=== PATIENT | female | born 1960 | race African-American/Black ===

== ENCOUNTER → 2017-05-26 | Outpatient (CLI) | payer MEDICARE, OTHER ==
[2015-11-30 20:55] VITALS: BP 101/56
[~2017-05-26] MED LIST: DIAZ10TA PO; INSU200I SQ; LACT10SO PO; NALO0.4A3 IJ; OXYC80TA16 PO; POLY119P19 PO; [UNRECOGNIZED DRUG - CODE] MC
--- NOTE | 2017-05-26 15:58 | RAD ---
Right second toe, 05/26/2017: History: Pain and swelling No fracture or destructive bony lesion is seen. The soft tissues are unremarkable. IMPRESSION: No acute abnormality is detected.
== END | disposition home or self-care (01) ==
LOC: PMG 15:02
PROVIDERS: ATTEND Physician Assistant
DX: M79.674 Pain in right toe(s) (principal)
CPT/HCPCS: 73660

== ENCOUNTER 2017-07-15 17:27 | Inpatient (IN) | payer MEDICARE, OTHER ==
[~2017-07-15] VITALS: Ht 162.6 cm; Wt 172.0 kg
[2017-07-15] MEDS ORDERED: IPRATRPIUM/ALBUTEROL 0.5/2.5MG 3 ML NEBU. NEB ONE ×3 (18:45)
[2017-07-15] MEDS ORDERED: methylPREDNISolone SOD SUCC PF 125 MG/2 ML VIAL. IV ONE (18:45)
[2017-07-15] MEDS ORDERED: AZITHROMYCIN 250 MG TABLET. PO ONE (18:45)
[2017-07-15 19:01] LABS: BASO % 1 % (0-3); EOS # 0.1 x10^3/uL (0.0-0.7); EOS % 3 % (0-3); HEMATOCRIT 34.9 % (36.0-47.0); HEMOGLOBIN 11.6 g/dL (12.0-15.5); LYMPH # 0.8 x10^3/uL (1.0-4.8); LYMPH % 22 % (24-48); MEAN CORPUSCULAR HEMOGLOBIN 30 pg (25-35); MEAN CORPUSCULAR HGB CONC 33 g/dL (31-37); MEAN CORPUSCULAR VOLUME 90 fL (79-100); MONO # 0.9 x10^3/uL (0.0-1.1); MONO % 25 % (0-9); NEUT # 1.8 x10^3uL (1.8-7.7); NEUT % 49 % (31-73); PLATELET COUNT 105 x10^3/uL (140-400); RED BLOOD COUNT 3.87 x10^6/uL (3.50-5.40); RED CELL DISTRIBUTION WIDTH 14.2 % (11.5-14.5); WHITE BLOOD COUNT 3.7 x10^3/uL (4.0-11.0)
[2017-07-15 19:12] LABS: ALBUMIN 2.6 g/dL (3.4-5.0); ALBUMIN/GLOBULIN RATIO 0.5 (1.0-1.7); CALCIUM 8.8 mg/dL (8.5-10.1); CREATININE 1.1 mg/dL (0.6-1.0); GFR 62.2; POTASSIUM 5.2 mmol/L (3.5-5.1); TOTAL BILIRUBIN 0.3 mg/dL (0.2-1.0); TOTAL PROTEIN 7.7 g/dL (6.4-8.2)
--- NOTE | 2017-07-15 19:54 | EKG ---
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
[2017-07-15 20:01] LABS: % BASOS 2 % (0-3); % LYMPHS 13 % (24-48); % MONOS 23 % (0-10); % SEGS 54 % (35-66)
[2017-07-15 20:51] LABS: PLT ESTIMATE DECREASED (ADEQUATE)
[2017-07-15 20:54] LABS: TARGET CELLS FEW
[2017-07-15 20:55] LABS: TEAR DROP CELLS FEW
[2017-07-15 20:56] LABS: % ATYL 8 % (0-0)
[2017-07-15] MEDS ORDERED: ACETAMINOPHEN 325 MG TABLET PO PRN (21:00)
[2017-07-15] MEDS ORDERED: MORPHINE SULFATE 4 MG/ML DISP.SYRIN. IV PRN (21:00)
[2017-07-15] MEDS ORDERED: ONDANSETRON PF 4 MG/2 ML VIAL. IV PRN (21:00)
--- NOTE | 2017-07-15 21:04 | PHYS DOC ---
Past History Past Medical History: Anxiety, Asthma, CHF, Constipation, COPD, Diabetes, Heart Disease, Hypothyroid, Sciatica Past Surgical History: Hysterectomy, Other Alcohol Use: None Drug Use: None Adult General Chief Complaint Chief Complaint: SHORTNESS OF BREATH HPI HPI Patient is a 56-year-old morbidly obese female who presents to the ER today secondary to COPD exacerbation type symptoms. Patient has a history of hypertension, diabetes, CHF, COPD. Patient reports she has a history of cirrhosis in the past secondary to alcohol use and Tylenol use. Patient reports she has a history significant for COPD and uses treatments at home. Patient reports over the last several days to week she has been having cough of green- yellow sputum that has been slowly getting better, increased shortness of breath that has been slowly getting worse. Patient reports that she saw her primary care physician was reassured and sent home. Patient reports she was not given any antibiotics or steroids at that time. Patient denies any fevers shakes chills. Patient has any vomiting or diarrhea. Patient has any chest pain. Patient has any abdominal pain. Patient has a lower extremity edema. Review of Systems Review of Systems Review of systems: Constitutional: Denies fever or chills Eyes: Denies change in visual acuity, redness, or eye pain HENT: Denies nasal congestion or sore throat Respiratory: Denies cough or shortness of breath All other systems were reviewed and found to be within normal limits, except as documented in this note. Physical exam: Constitutional: Well developed morbidly obese, well nourished, no acute distress , non-toxic appearance. HENT: Normocephalic, atraumatic, bilateral external ears normal, nose normal. Eyes: PERRLA, EOMI, conjunctiva normal, no discharge. Neck: Normal range of motion, no tenderness, supple, no stridor. Cardiovascular: Heart rate regular rhythm, Lungs & Thorax: Diffuse inspiratory and expiratory wheezing, tachypnea Abdomen: No abdominal distention. Skin: Warm, dry, no erythema, no rash. Back: Normal spinal curvature Extremities: No tenderness, no cyanosis, no clubbing, ROM intact, no edema. Neurologic: Alert and oriented X 3, normal motor function, normal sensory function, no focal deficits noted. Psychologic: Affect normal, judgement normal, mood normal. Patient's ER physical exam was most remarkable: EKG as interpreted by ER physician reveals: Normal sinus rhythm with incomplete right bundle branch block Chest x-ray as interpreted by ER physician reveals: No infiltrates or effusions. No pneumonia Labs reviewed: Within normal limits Assessment and plan: 1. COPD exacerbation: Patient with chest x-ray was unremarkable for any infiltrates or effusions. Patient has a normal WBC count. Patient has no fever. Patient's signs and symptoms are not consistent with pneumonia. Patient's sinus symptoms are consistent with an acute exacerbation of chronic bronchitis. Patient will be given by mouth Zithromax here in the ED given her cough and bronchitis type symptoms. Patient was given IV Solu-Medrol and multiple DuoNeb' s. After reevaluation the patient is still not feeling significantly improved and feels like she does not feel comfortable going home. Patient be admitted to the hospital for further management of her COPD. Patient be given oxygen at home. Patient reports that she uses CPAP at home to go to sleep. Current Medications Current Medications Current Medications Medications (Trade) Dose Ordered Sig/Julia Start Time Stop Time Status Last Admin Dose Admin Albuterol/ Ipratropium (Duoneb) 3 ml 1X ONCE 07/15/17 18:45 07/15/17 18:45 DC Azithromycin (Zithromax) 500 mg 1X ONCE 07/15/17 18:45 07/15/17 18:46 DC 07/15/17 18:55 500 MG Methylprednisolone Sodium Succinate (SOLU-Medrol 125MG VIAL) 125 mg 1X ONCE 07/15/17 18:45 07/15/17 18:46 DC 07/15/17 18:55 125 MG Allergies Allergies Allergies Coded Allergies Type Severity Reaction Last Updated Verified Latex, Natural Rubber Allergy Unknown 11/30/15 Yes Current Patient Data Vital Signs Vital Signs Date Time Temp Pulse Resp B/P (MAP) Pulse Ox O2 Delivery O2 Flow Rate FiO2 07/15/17 20:53 80 22 118/63 (81) 98 Room Air 2.0 07/15/17 17:43 97.9 Lab Results Laboratory Tests Test 07/15/17 18:46 White Blood Count 3.7 x10^3/uL (4.0-11.0) L Red Blood Count 3.87 x10^6/uL (3.50-5.40) Hemoglobin 11.6 g/dL (12.0-15.5) L Hematocrit 34.9 % (36.0-47.0) L Mean Corpuscular Volume 90 fL (79-100) Mean Corpuscular Hemoglobin 30 pg (25-35) Mean Corpuscular Hemoglobin Concent 33 g/dL (31-37) Red Cell Distribution Width 14.2 % (11.5-14.5) Platelet Count 105 x10^3/uL (140-400) L Neutrophils (%) (Auto) 49 % (31-73) Lymphocytes (%) (Auto) 22 % (24-48) L Monocytes (%) (Auto) 25 % (0-9) H Eosinophils (%) (Auto) 3 % (0-3) Basophils (%) (Auto) 1 % (0-3) Neutrophils # (Auto) 1.8 x10^3uL (1.8-7.7) Lymphocytes # (Auto) 0.8 x10^3/uL (1.0-4.8) L Monocytes # (Auto) 0.9 x10^3/uL (0.0-1.1) Eosinophils # (Auto) 0.1 x10^3/uL (0.0-0.7) Basophils # (Auto) 0.0 x10^3/uL (0.0-0.2) Segmented Neutrophils % 54 % (35-66) Lymphocytes % 13 % (24-48) L Atypical Lymphocytes % (Manual) 8 % (0-0) H Monocytes % 23 % (0-10) H Basophils % 2 % (0-3) Platelet Estimate Decreased (ADEQUATE) Basophilic Stippling Present Target Cells Few Tear Drop Cells Few Sodium Level 134 mmol/L (136-145) L Potassium Level 5.2 mmol/L (3.5-5.1) H Chloride Level 99 mmol/L (98-107) Carbon Dioxide Level 33 mmol/L (21-32) H Anion Gap 2 (6-14) L Blood Urea Nitrogen 15 mg/dL (7-20) Creatinine 1.1 mg/dL (0.6-1.0) H Estimated GFR (Cockcroft-Gault) 62.2 BUN/Creatinine Ratio 14 (6-20) Glucose Level 91 mg/dL (70-99) Calcium Level 8.8 mg/dL (8.5-10.1) Total Bilirubin 0.3 mg/dL (0.2-1.0) Aspartate Amino Transferase (AST) 39 U/L (15-37) H Alanine Aminotransferase (ALT) 27 U/L (14-59) Alkaline Phosphatase 152 U/L (46-116) H Troponin I Quantitative < 0.017 ng/mL (0-0.055) Total Protein 7.7 g/dL (6.4-8.2) Albumin 2.6 g/dL (3.4-5.0) L Albumin/Globulin Ratio 0.5 (1.0-1.7) L EKG EKG [] Radiology/Procedures Radiology/Procedures [] Course & Med Decision Making Course & Med Decision Making Pertinent Labs and Imaging studies reviewed. (See chart for details) [] Dragon Disclaimer Dragon Disclaimer This electronic medical record was generated, in whole or in part, using a voice recognition dictation system. Departure Departure: Impression: Primary Impression: COPD exacerbation Disposition: ADMITTED INPATIENT Admitting Physician: Dalia Dowd Condition: IMPROVED Referrals: ESSENCE RILEY (PCP) STACIA MOREAU MD Jul 15, 2017 21:04
[2017-07-15 23:18] VITALS: BP 180/89
[2017-07-16] VITALS: BP 146/76
[2017-07-16] MEDS ORDERED: FURO-69 PO (00:31)
[2017-07-16] MEDS ORDERED: ZINC56CR2 TP (00:31)
[2017-07-16] MEDS ORDERED: NYST15CR TP (00:31)
[2017-07-16] MEDS ORDERED: FURO-68 PO (00:31)
[2017-07-16] MEDS ORDERED: LIRA0.6P2 SQ (00:31)
[2017-07-16] MEDS ORDERED: CARV12.52 PO (00:31)
[2017-07-16] MEDS ORDERED: MUPI22OI2 TP (00:31)
[2017-07-16] MEDS ORDERED: OXYC30TA PO (00:31)
[2017-07-16] MEDS ORDERED: DICL100G18 TP (00:31)
[2017-07-16] MEDS ORDERED: METH-38 PO (00:31)
[2017-07-16] MEDS ORDERED: MODA200T2 PO (00:31)
[2017-07-16] MEDS ORDERED: ALBU8.5H8 INH (00:31)
[2017-07-16] MEDS ORDERED: OXYC60TA7 PO (00:31)
[2017-07-16] MEDS ORDERED: TIOT18CA IH (00:31)
[2017-07-16] MEDS ORDERED: TIZA4TAB PO (00:31)
[2017-07-16] MEDS ORDERED: SPIR25TA3 PO (00:31)
[2017-07-16] MEDS ORDERED: INSU100I13 SQ (00:31)
[2017-07-16] MEDS ORDERED: MELO15TA23 PO (00:31)
[2017-07-16] MEDS ORDERED: HYDR453.3 TP (00:31)
[2017-07-16] MEDS ORDERED: POTA20TA4 PO (00:31)
[2017-07-16] MEDS ORDERED: METR70GE2 TP (00:31)
[2017-07-16] MEDS ORDERED: CALC60CR2 TP (00:31)
[2017-07-16] MEDS ORDERED: GABA600T2 PO (00:31)
[2017-07-16] MEDS ORDERED: LISI10TA2 PO (00:31)
[2017-07-16] MEDS ORDERED: CLOB15OI TP (00:31)
[2017-07-16] MEDS ORDERED: OMEP20TA8 PO (00:31)
[2017-07-16] MEDS ORDERED: ZOLP10TA PO (00:31)
[2017-07-16] MEDS ORDERED: ALBUTEROL SULFATE 8GM INHALER. INH PRN (00:45)
[2017-07-16] MEDS ORDERED: HYDROCORTISONE 2.5% TOPICAL CREAM 30GM TUBE. TP PRN (00:45)
[2017-07-16] MEDS ORDERED: GABAPENTIN 400 MG CAPSULE. PO ONE (01:30)
[2017-07-16] MEDS ORDERED: ZINC OXIDE 20% TOPICAL OINTMENT 28GM TUBE. TP PRN (01:30)
[2017-07-16] MEDS ORDERED: ALBUTEROL SULFATE 2.5 MG/3 ML NEBU. NEB PRN (01:30)
[2017-07-16] MEDS: methylPREDNISolone SOD SUCC PF 40 MG/ML VIAL. IV SCH ×4 (01:34→17:59)
[2017-07-16 03:00] VITALS: BP 138/66
[2017-07-16] MEDS: IPRATRPIUM/ALBUTEROL 0.5/2.5MG 3 ML NEBU. NEB SCH ×4 (05:50→21:25)
[2017-07-16] MEDS: oxyCODONE ER 20 MG TAB.ER.12H PO SCH ×3 (07:18→21:59)
[2017-07-16 07:20] VITALS: BP 148/68
[2017-07-16] MEDS ORDERED: IPRATRPIUM/ALBUTEROL 0.5/2.5MG 3 ML NEBU. NEB SCH (08:00)
--- NOTE | 2017-07-16 08:00 | RAD ---
2 views of the Chest 07/15/2017 8:32 PM Indication: shortness of breath Comparison: Chest radiograph May 11, 2015 Findings: Patient is mildly rotated. There is no focal consolidation or infiltrate identified. There is no effusion or pneumothorax. Degenerative changes of the lumbar spine are noted. Heart size is normal. Chronic appearing left humeral deformity noted. Impression: No evidence of acute cardiopulmonary process.
[2017-07-16] MEDS: FUROSEMIDE 40 MG TABLET PO SCH (08:15)
[2017-07-16] MEDS: MODAFINIL 100 MG TABLET PO SCH (08:16)
[2017-07-16] MEDS: CARVEDILOL 12.5 MG TABLET PO SCH ×2 (08:16→16:58)
[2017-07-16] MEDS: PANTOPRAZOLE 40 MG TABLET. PO SCH (08:17)
[2017-07-16] MEDS: METHOCARBAMOL 750 MG TABLET PO SCH ×2 (08:17→21:12)
[2017-07-16] MEDS: SPIRONOLACTONE 25 MG TABLET PO SCH ×2 (08:17→21:12)
[2017-07-16] MEDS: LISINOPRIL 10 MG TABLET PO SCH (08:17)
[2017-07-16] MEDS: GABAPENTIN 300 MG CAPSULE. PO SCH ×3 (08:17→21:12)
[2017-07-16] MEDS: MELOXICAM 15 MG TABLET. PO SCH (08:17)
[2017-07-16] MEDS: INSULIN ASPART 300 UNITS/3 ML INSULN.PEN SQ SCH ×3 (08:37→16:58)
[2017-07-16] MEDS: DICLOFENAC SODIUM 1% TOPICAL GEL 100GM TUBE. TP SCH ×2 (09:00→21:57)
[2017-07-16] MEDS: NON FORMULARY ITEM (Liraglutide (Victoza 3-Pak) 1.8 MG) SQ SCH (09:00)
[2017-07-16] MEDS ORDERED: NON FORMULARY ITEM (Tiotropium Bromide (Spiriva) 1 CAP) IH SCH (09:00)
[2017-07-16] MEDS: POTASSIUM CHLORIDE 20 MEQ TABLET.ER. PO SCH ×2 (09:00→21:00)
[2017-07-16] MEDS: NYSTATIN 100,000 UNIT/GM TOPICAL CREAM 15GM TUBE. TP SCH ×2 (09:00→21:58)
[2017-07-16 11:18] VITALS: BP 133/65
[2017-07-16 15:37] VITALS: BP 131/51
[2017-07-16 15:40] LABS: INFLUENZA A PATIENT NEGATIVE (NEGATIVE); INFLUENZA B PATIENT NEGATIVE (NEGATIVE)
[2017-07-16] MEDS: AZITHROMYCIN 250 MG TABLET. PO SCH (16:50)
[2017-07-16] MEDS: FUROSEMIDE 20 MG TABLET PO SCH (16:50)
[2017-07-16] MEDS: cefTRIAXone IV Push 1 GM VIAL. IVP SCH (16:51)
[2017-07-16 19:33] VITALS: BP 144/87
[2017-07-16] MEDS: MONTELUKAST 10 MG TABLET. PO SCH (21:12)
[2017-07-16] MEDS: INSULIN DETEMIR 300 UNITS/3 ML INSULN.PEN. SQ SCH (21:22)
[2017-07-17] MEDS: methylPREDNISolone SOD SUCC PF 40 MG/ML VIAL. IV SCH ×4 (00:13→18:00)
[2017-07-17 00:26] VITALS: BP 149/77
[2017-07-17] MEDS: tiZANidine 4 MG TABLET. PO SCH ×2 (02:00→20:36)
--- NOTE | 2017-07-17 02:46 | HP ---
ADMIT DATE: 07/15/2017 HISTORY OF PRESENT ILLNESS: The patient is a 56-year-old -[place] female patient, who came to the Emergency Room complaining of shortness of breath, cough, chest tightness, wheezing and seemed to be yellowish sputum that has been going on for almost 2 weeks, according to her. So, her primary care physician about a week ago was reassured and sent home. At that time, she was not given any antibiotic or steroids; however, the patient denied having any fevers, shaking chills, and does not have any nausea, vomiting or diarrhea. She denied any chest pain, denied any nausea, vomiting, or diarrhea. She was evaluated in the Emergency Room and was admitted with COPD exacerbation and was started on steroids and inhalers. PAST MEDICAL HISTORY: Her past medical history is significant for chronic obstructive pulmonary disease, morbid obesity, obstructive sleep apnea, on CPAP. She has a history of congestive heart failure, most likely due to left ventricular diastolic dysfunction, hypertension, diabetes mellitus, liver cirrhosis, secondary to alcohol and perhaps hepatitis C, hypothyroidism, and chronic osteoarthritis. She has psoriasis and what seemed to be peripheral vascular disease. PAST SURGICAL HISTORY: Past surgical history is significant for bilateral cataract extraction, appendectomy, total abdominal hysterectomy, colonoscopy done yearly as they found she has polyps. She has also back surgery x 2. ALLERGIES: She has no known drug allergies except TO LATEX AND NATURAL RUBBERS. MEDICATIONS: She is currently on following medications: She is on albuterol sulfate 0.5 mg 2 puffs every 6 hours, carvedilol 12.5 mg twice a day, diazepam 10 mg twice a day, diclofenac sodium 100 gram gel apply topically twice a day, furosemide 20 mg daily, gabapentin 600 mg 3 times a day, hydrocortisone cream apply topically twice a day. She is on Lantus insulin 24 units at bedtime and Humalog insulin 24 units before meals. She is on Victoza 1.8 mg subq daily. She is on lisinopril 10 mg once a day, meloxicam 15 mg once a day, methocarbamol 750 mg twice a day, modafinil 200 mg once a day, nystatin 15 grams cream apply topically twice a day, omeprazole 20 mg once a day, oxycodone extended release 60 mg every 8 hours, oxycodone 30 mg tablet, half a tablet every 4 hours. She is on potassium chloride 20 mEq twice a day, spironolactone 25 mg twice a day, Spiriva HandiHaler 1 inhalation once a day, tizanidine 4 mg at bedtime, zinc oxide or Desitin apply topically twice a day. She is on Ambien 10 mg at bedtime. FAMILY HISTORY: She has one brother at the age of 45 because of stomach cancer, another sister in her 30s because of breast cancer. Her another brother and she has one brother who is blind and has dementia at the age of 75. SOCIAL HISTORY: She lives with her family. She has 2 sons and 1 daughter. She quit smoking 23 years ago, quit alcohol 23 years ago. She said that she used to smoke cigarettes and smoked since she was 16 years old. She also used to be a heavy alcohol drinker, quit 23 years ago. She stated that she abused crack and weed and speed when at her younger age. REVIEW OF SYSTEMS: The patient has bilateral cataract extraction. Denied any glaucoma or macular degeneration. Denied any earache, tinnitus or sensorineural deafness. Denied any nosebleeds, stuffy nose or postnasal drip. Denied any sore throat, sore tongue, toothache, hoarseness of voice or difficulty swallowing. Denied any nausea, vomiting, diarrhea or constipation. Denied any hematemesis, melena or hematochezia. Denied any dysuria, frequency or hematuria. Denied any chest pain. She did complain of shortness of breath, cough with yellowish sputum. PHYSICAL EXAMINATION: GENERAL: On arrival to the Emergency Room, the patient was slightly tachypneic and pale, no jaundice, cyanosis, or thyromegaly. No jugular venous distension. No limb edema. VITAL SIGNS: Her heart rate was 18, blood pressure was 135/70, temperature was 98, respiratory rate was 22, and oxygen saturation was 98% on 2 liters of oxygen. HEAD, EYES, EARS, NOSE AND THROAT: Showed normocephalic, atraumatic. NECK: Supple. HEART: Showed normal first and second heart sounds with no gallop, rub or murmur. CHEST: Showed central trachea, equally reduced expansion, reduced air entry, vesicular sounds with bilateral scattered rhonchi. I could not appreciate any crepitation. ABDOMEN: Distended, soft, nontender. NEUROLOGIC: She is awake, alert, responding appropriately. Cranial nerves are intact. EXTREMITIES: She moves extremities without difficulty, although she is mostly bedbound, chair bound. LABORATORY AND DIAGNOSTIC DATA: Her lab work on arrival showed a white cell count of 3700, hemoglobin 11.6, hematocrit 34.9, MCV 90, and platelet count of 105,000. Her serum sodium was 134, potassium 5.2, chloride 99, bicarbonate 33, anion gap of 2, BUN 15, creatinine 1.1, estimated GFR was 60 mL per minute. Her glucose was 91, calcium was 8.8. Total bilirubin and ALT was normal. AST and alkaline phosphatase was slightly elevated. Her total protein was 7.7, albumin was 2.6. She did have a chest x-ray, which showed there is no focal consolidation or infiltrate identified. There is no effusion or pneumothorax. Degenerative changes of the lumbar spine are noted, heart size is normal. Chronic appearing left humeral deformity noted. ASSESSMENT AND PLAN: The patient was admitted with chronic obstructive pulmonary disease exacerbation. She is now on steroids and nebulized albuterol and Atrovent. Continue all her other medications. Other medical problems including hypertension, type 2 diabetes mellitus, liver cirrhosis secondary to hepatitis C and alcoholism, hypothyroidism, morbid obesity, obstructive sleep apnea, on CPAP. She has also history of psoriasis and chronic arthritis. NICOLE LEE MD DR: ANAHI/rafi JOB#: [id number] / [id number]
[2017-07-17] MEDS ORDERED: MUPI30OI TP (03:11)
[2017-07-17] MEDS ORDERED: METR70GE2 TP (03:11)
[2017-07-17] MEDS ORDERED: CLOB15OI TP (03:11)
[2017-07-17] MEDS ORDERED: CALC60CR TP (03:11)
[2017-07-17 05:32] LABS: HEMATOCRIT 35.1 % (36.0-47.0); HEMOGLOBIN 11.7 g/dL (12.0-15.5); RED BLOOD COUNT 3.88 x10^6/uL (3.50-5.40); RED CELL DISTRIBUTION WIDTH 14.1 % (11.5-14.5); WHITE BLOOD COUNT 4.6 x10^3/uL (4.0-11.0)
[2017-07-17 05:33] VITALS: BP 117/64
[2017-07-17] MEDS: IPRATRPIUM/ALBUTEROL 0.5/2.5MG 3 ML NEBU. NEB SCH ×4 (05:38→20:25)
[2017-07-17 05:48] LABS: ALBUMIN 2.4 g/dL (3.4-5.0); ALBUMIN/GLOBULIN RATIO 0.5 (1.0-1.7); CALCIUM 8.8 mg/dL (8.5-10.1); CREATININE 1.1 mg/dL (0.6-1.0); GFR 62.2; POTASSIUM 4.7 mmol/L (3.5-5.1); TOTAL BILIRUBIN 0.3 mg/dL (0.2-1.0); TOTAL PROTEIN 7.5 g/dL (6.4-8.2)
[2017-07-17] MEDS: oxyCODONE ER 20 MG TAB.ER.12H PO SCH ×4 (07:12→22:00)
[2017-07-17] MEDS: GABAPENTIN 300 MG CAPSULE. PO SCH ×3 (08:16→20:37)
[2017-07-17] MEDS: MELOXICAM 15 MG TABLET. PO SCH (08:17)
[2017-07-17] MEDS: MODAFINIL 100 MG TABLET PO SCH (08:17)
[2017-07-17] MEDS: CARVEDILOL 12.5 MG TABLET PO SCH ×2 (08:17→17:02)
[2017-07-17] MEDS: METHOCARBAMOL 750 MG TABLET PO SCH ×2 (08:17→20:37)
[2017-07-17] MEDS: SPIRONOLACTONE 25 MG TABLET PO SCH ×2 (08:18→20:36)
[2017-07-17] MEDS: PANTOPRAZOLE 40 MG TABLET. PO SCH (08:18)
[2017-07-17] MEDS: FUROSEMIDE 40 MG TABLET PO SCH (08:18)
[2017-07-17] MEDS: LISINOPRIL 10 MG TABLET PO SCH (08:18)
[2017-07-17] MEDS: DICLOFENAC SODIUM 1% TOPICAL GEL 100GM TUBE. TP SCH ×2 (08:19→21:00)
[2017-07-17] MEDS: INSULIN ASPART 300 UNITS/3 ML INSULN.PEN SQ SCH ×3 (08:24→17:03)
[2017-07-17] MEDS: POTASSIUM CHLORIDE 20 MEQ TABLET.ER. PO SCH ×2 (08:41→20:37)
[2017-07-17] MEDS: LACTOBACILLUS RHAMNOSUS GG 1 CAPSULE. PO SCH ×2 (08:41→20:36)
[2017-07-17] MEDS: NYSTATIN 100,000 UNIT/GM TOPICAL CREAM 15GM TUBE. TP SCH ×2 (08:41→21:00)
[2017-07-17] MEDS: NON FORMULARY ITEM (Liraglutide (Victoza 3-Pak) 1.8 MG) SQ SCH (08:41)
[2017-07-17 11:07] VITALS: BP 100/60
[2017-07-17] MEDS: oxyCODONE IR 5 MG TABLET PO PRN (13:03)
[2017-07-17 15:15] VITALS: BP 148/68
[2017-07-17] MEDS: cefTRIAXone IV Push 1 GM VIAL. IVP SCH (15:47)
[2017-07-17] MEDS: FUROSEMIDE 20 MG TABLET PO SCH (15:47)
--- NOTE | 2017-07-17 16:59 | PN ---
DATE: 07/17/2017 SUBJECTIVE: The patient is resting slightly propped up in her bed, eating her lunch comfortably. She continued to complain of having difficulty expectorating and also shortness of breath. GENERAL: When I examined her, she looked well and was clearly in no apparent respiratory distress, slightly pale, but not jaundiced, cyanosed from thyromegaly. No jugular venous distension. No limb edema. VITAL SIGNS: Her heart rate was 67, blood pressure was 100/60, temperature was 97.6, respiratory rate was 18, and oxygen saturation was 96% on 2.5 liters of oxygen. HEAD, EYES, EARS, NOSE, AND THROAT: Showed normocephalic, atraumatic. NECK: Supple. HEART: Showed normal first and second heart sounds. No gallop, rub, or murmur. CHEST: Clear to auscultation. No crepitation or rhonchi. ABDOMEN: Distended, soft. NEUROLOGIC: She is awake, alert, responding appropriately. Cranial nerves intact. She moves extremities without difficulty. Her intake was 1000, output was 1175. LABORATORY DATA: As of this morning, her white cell count was 4600, hemoglobin 11.7, hematocrit 35, MCV 91, and platelet count of 91,000. Her chemistry showed a serum sodium of 133, potassium 4.7, chloride 97, bicarbonate 31, anion gap of 4, BUN 21, creatinine 1.1, estimated GFR was 62 mL per minute. Her blood glucose was 153, calcium was 8.8. Total bilirubin, AST, ALT, alkaline phosphatase were normal. Her ammonia was 11. Total protein was 7.5, albumin 2.4. Her prothrombin time was 13.3, INR 1.3. Her influenza A and B were negative. ASSESSMENT: 1. Acute bronchitis. 2. Chronic obstructive pulmonary disease exacerbation. 3. Hypertension. 4. Type 2 diabetes mellitus. 5. Liver cirrhosis secondary to hepatitis C and alcoholism. 6. Hypothyroidism. 7. Morbid obesity, obstructive sleep apnea, on CPAP. 8. Psoriasis and probably chronic psoriatic arthritis. PLAN: To continue with IV antibiotic in the form of Rocephin and Zithromax. Continue with bronchodilator. Continue with steroids. NICOLE LEE MD DR: ANAHI/rafi JOB#: [id number] / [id number]
[2017-07-17] MEDS: AZITHROMYCIN 250 MG TABLET. PO SCH (17:02)
[2017-07-17 18:38] VITALS: BP 154/45
[2017-07-17] MEDS: MONTELUKAST 10 MG TABLET. PO SCH (20:36)
[2017-07-17] MEDS: INSULIN DETEMIR 300 UNITS/3 ML INSULN.PEN. SQ SCH (20:44)
[2017-07-18] MEDS: ZOLPIDEM 5 MG TABLET. PO PRN (01:02)
[2017-07-18] MEDS: methylPREDNISolone SOD SUCC PF 40 MG/ML VIAL. IV SCH ×4 (01:02→20:24)
[2017-07-18] MEDS: oxyCODONE IR 5 MG TABLET PO PRN ×2 (01:03→22:48)
[2017-07-18] MEDS: IPRATRPIUM/ALBUTEROL 0.5/2.5MG 3 ML NEBU. NEB SCH ×4 (05:16→21:01)
[2017-07-18] MEDS: oxyCODONE ER 20 MG TAB.ER.12H PO SCH ×3 (05:33→22:00)
[2017-07-18 06:51] VITALS: BP 178/80
[2017-07-18] MEDS: PANTOPRAZOLE 40 MG TABLET. PO SCH (07:52)
[2017-07-18] MEDS: CARVEDILOL 12.5 MG TABLET PO SCH ×2 (08:28→17:15)
[2017-07-18] MEDS: INSULIN ASPART 300 UNITS/3 ML INSULN.PEN SQ SCH ×3 (08:31→17:24)
[2017-07-18] MEDS: FUROSEMIDE 40 MG TABLET PO SCH (08:55)
[2017-07-18] MEDS: SPIRONOLACTONE 25 MG TABLET PO SCH ×2 (08:56→20:26)
[2017-07-18] MEDS: LACTOBACILLUS RHAMNOSUS GG 1 CAPSULE. PO SCH ×2 (08:56→20:25)
[2017-07-18] MEDS: GABAPENTIN 300 MG CAPSULE. PO SCH ×3 (08:56→20:25)
[2017-07-18] MEDS: POTASSIUM CHLORIDE 20 MEQ TABLET.ER. PO SCH ×2 (08:56→20:24)
[2017-07-18] MEDS: MELOXICAM 15 MG TABLET. PO SCH (08:56)
[2017-07-18] MEDS: LISINOPRIL 10 MG TABLET PO SCH (08:57)
[2017-07-18] MEDS: MODAFINIL 100 MG TABLET PO SCH (08:57)
[2017-07-18] MEDS: DICLOFENAC SODIUM 1% TOPICAL GEL 100GM TUBE. TP SCH ×2 (08:58→20:45)
[2017-07-18] MEDS: METHOCARBAMOL 750 MG TABLET PO SCH ×2 (08:58→20:25)
[2017-07-18] MEDS: NYSTATIN 100,000 UNIT/GM TOPICAL CREAM 15GM TUBE. TP SCH ×2 (08:58→20:45)
[2017-07-18] MEDS: NON FORMULARY ITEM (Liraglutide (Victoza 3-Pak) 1.8 MG) SQ SCH (09:00)
[2017-07-18 11:53] VITALS: BP 133/71
[2017-07-18 15:41] VITALS: BP 156/70
[2017-07-18] MEDS: FUROSEMIDE 20 MG TABLET PO SCH (16:14)
[2017-07-18] MEDS: cefTRIAXone IV Push 1 GM VIAL. IVP SCH (16:15)
[2017-07-18] MEDS: AZITHROMYCIN 250 MG TABLET. PO SCH (17:15)
[2017-07-18 19:29] VITALS: BP 135/70
[2017-07-18] MEDS: ENOXAPARIN ** NOTE DOSE ** SYRINGE SQ SCH (20:24)
[2017-07-18] MEDS: MONTELUKAST 10 MG TABLET. PO SCH (20:26)
[2017-07-18] MEDS: [UNRECOGNIZED DRUG - OTHER] INH SCH (21:00)
[2017-07-18] MEDS: INSULIN DETEMIR 300 UNITS/3 ML INSULN.PEN. SQ SCH (22:17)
[2017-07-18 23:30] VITALS: BP 142/71
[2017-07-19] MEDS: ZOLPIDEM 5 MG TABLET. PO PRN (01:47)
[2017-07-19] MEDS: tiZANidine 4 MG TABLET. PO SCH ×2 (01:47→21:21)
[2017-07-19] MEDS: methylPREDNISolone SOD SUCC PF 40 MG/ML VIAL. IV SCH ×2 (04:10→11:47)
[2017-07-19] MEDS: IPRATRPIUM/ALBUTEROL 0.5/2.5MG 3 ML NEBU. NEB SCH ×4 (04:51→20:08)
[2017-07-19] MEDS: oxyCODONE ER 20 MG TAB.ER.12H PO SCH ×3 (06:06→21:23)
[2017-07-19 06:41] VITALS: BP 138/72
[2017-07-19 06:44] LABS: HEMATOCRIT 35.1 % (36.0-47.0); HEMOGLOBIN 11.6 g/dL (12.0-15.5); RED BLOOD COUNT 3.88 x10^6/uL (3.50-5.40); RED CELL DISTRIBUTION WIDTH 13.9 % (11.5-14.5); WHITE BLOOD COUNT 4.5 x10^3/uL (4.0-11.0)
[2017-07-19 06:52] LABS: ALBUMIN 2.2 g/dL (3.4-5.0); ALBUMIN/GLOBULIN RATIO 0.5 (1.0-1.7); CALCIUM 8.5 mg/dL (8.5-10.1); CREATININE 1.1 mg/dL (0.6-1.0); GFR 62.2; POTASSIUM 5.6 mmol/L (3.5-5.1); TOTAL BILIRUBIN 0.2 mg/dL (0.2-1.0); TOTAL PROTEIN 6.6 g/dL (6.4-8.2)
[2017-07-19] MEDS: LACTOBACILLUS RHAMNOSUS GG 1 CAPSULE. PO SCH ×2 (08:29→21:20)
[2017-07-19] MEDS: FUROSEMIDE 40 MG TABLET PO SCH (08:29)
[2017-07-19] MEDS: GABAPENTIN 300 MG CAPSULE. PO SCH ×3 (08:29→16:40)
[2017-07-19] MEDS: MODAFINIL 100 MG TABLET PO SCH (08:29)
[2017-07-19] MEDS: METHOCARBAMOL 750 MG TABLET PO SCH ×2 (08:30→21:20)
[2017-07-19] MEDS: CARVEDILOL 12.5 MG TABLET PO SCH ×2 (08:30→16:41)
[2017-07-19] MEDS: PANTOPRAZOLE 40 MG TABLET. PO SCH (08:30)
[2017-07-19] MEDS: LISINOPRIL 10 MG TABLET PO SCH (08:30)
[2017-07-19] MEDS: [UNRECOGNIZED DRUG - OTHER] INH SCH ×2 (08:30→21:20)
[2017-07-19] MEDS: MELOXICAM 15 MG TABLET. PO SCH (08:30)
[2017-07-19] MEDS: ENOXAPARIN ** NOTE DOSE ** SYRINGE SQ SCH ×2 (08:33→21:20)
[2017-07-19] MEDS: INSULIN ASPART 300 UNITS/3 ML INSULN.PEN SQ SCH ×3 (08:43→16:30)
[2017-07-19] MEDS: NYSTATIN 100,000 UNIT/GM TOPICAL CREAM 15GM TUBE. TP SCH ×2 (08:44→21:00)
[2017-07-19] MEDS: SPIRONOLACTONE 25 MG TABLET PO SCH ×2 (08:44→21:20)
[2017-07-19] MEDS: NON FORMULARY ITEM (Liraglutide (Victoza 3-Pak) 1.8 MG) SQ SCH (08:44)
[2017-07-19] MEDS: DICLOFENAC SODIUM 1% TOPICAL GEL 100GM TUBE. TP SCH ×2 (08:44→21:00)
[2017-07-19] MEDS: POTASSIUM CHLORIDE 20 MEQ TABLET.ER. PO SCH (08:44)
[2017-07-19 10:48] VITALS: BP 111/59
[2017-07-19] MEDS: oxyCODONE IR 5 MG TABLET PO PRN (13:59)
[2017-07-19 14:11] LABS: CALCIUM 8.5 mg/dL (8.5-10.1); CREATININE 1.1 mg/dL (0.6-1.0); GFR 62.2; POTASSIUM 4.9 mmol/L (3.5-5.1)
[2017-07-19 15:50] VITALS: BP 141/68
[2017-07-19] MEDS: AZITHROMYCIN 250 MG TABLET. PO SCH (16:40)
[2017-07-19] MEDS: cefTRIAXone IV Push 1 GM VIAL. IVP SCH (16:41)
[2017-07-19] MEDS: FUROSEMIDE 20 MG TABLET PO SCH (16:41)
[2017-07-19] MEDS ORDERED: ENOXAPARIN 40 MG/0.4 ML DISP.SYRIN. SQ SCH (18:00)
[2017-07-19 19:58] VITALS: BP 109/65
[2017-07-19] MEDS: MONTELUKAST 10 MG TABLET. PO SCH (21:20)
[2017-07-19] MEDS: INSULIN DETEMIR 300 UNITS/3 ML INSULN.PEN. SQ SCH (21:43)
[2017-07-19 22:34] VITALS: BP 118/72
--- NOTE | 2017-07-19 23:14 | PN ---
DATE: 07/19/2017 SUBJECTIVE: The patient is resting slightly propped up in bed, continued to complain of cough, which is mostly dry hacking. Denied any chills, rigors or fever. PHYSICAL EXAMINATION: GENERAL: When I examined her this afternoon, she looked well and was not really in any respiratory distress, slightly pale. No jaundice, cyanosis, or thyromegaly. No jugular venous distension. No limb edema. VITAL SIGNS: Her heart rate was 65, blood pressure 141/68, temperature was 97.5, respiratory rate 22 and oxygen saturation was 99% on 2.5 liters by nasal cannula. HEAD, EYES, EARS, NOSE AND THROAT: Showed normocephalic, atraumatic. NECK: Supple. HEART: Showed normal first and second heart sounds with no gallop, rub or murmur. CHEST: Showed central trachea, equally reduced expansion, reduced air entry, vesicular breath sounds. I really could not appreciate any crepitation or rhonchi. ABDOMEN: Distended, soft, nontender. No guarding or rigidity. No organomegaly. Hernial orifice intact. Bowel sounds normal. NEUROLOGIC: She is awake, alert, responding appropriately. Cranial nerves intact. She moves extremities without difficulty, although so far she has been mostly bed bound. Her intake over the last 24 hours was 3030, output was 2400. LABORATORY DATA: As of this morning showed a white cell count 4500, hemoglobin 11.6, hematocrit 35, MCV 90 and platelet count of 93,000. Her chemistry showed a serum sodium 131, potassium 4.9, chloride 97, bicarbonate 32, anion gap of 2, BUN 27, creatinine 1.1, estimated GFR was 62 mL per minute. Her glucose was 193, calcium was 8.5. Her prothrombin time was 13.3, INR 1.3. Her influenza A and B were negative. Her nasal screen for MRSA PCR was positive. ASSESSMENT: 1. Acute bronchitis. 2. Chronic obstructive pulmonary disease exacerbation. 3. Hypertension. 4. Type 2 diabetes mellitus. 5. Liver cirrhosis secondary to hepatitis C and alcoholism. 6. Hypothyroidism. 7. Morbid obesity and obstructive sleep apnea on CPAP. 8. Psoriasis, probably chronic psoriatic arthritis. PLAN: To continue with IV antibiotic. Continue with the steroids. Continue with DVT prophylaxis. I will cut down his steroids to 40 mg twice a day. Continue with all other medication. I will discontinue her lisinopril in case this is the cause of her chronic cough and decide on further management accordingly. NICOLE LEE MD DR: ANAHI/rafi JOB#: [id number] / [id number]
[2017-07-20] MEDS ORDERED: methylPREDNISolone SOD SUCC PF 40 MG/ML VIAL. IV SCH
[2017-07-20] MEDS: IPRATRPIUM/ALBUTEROL 0.5/2.5MG 3 ML NEBU. NEB SCH ×4 (05:13→20:37)
[2017-07-20 05:14] VITALS: BP 143/81
[2017-07-20 06:16] LABS: CALCIUM 8.4 mg/dL (8.5-10.1); CREATININE 1.1 mg/dL (0.6-1.0); GFR 62.2; POTASSIUM 5.7 mmol/L (3.5-5.1)
--- NOTE | 2017-07-20 07:52 | PDOC ---
PROGRESS NOTES Diagnosis Problem Problems Medical Problems: (1) COPD exacerbation Status: Acute Assessment 1. Acute on chronic bronchitis: Cont abx (de-escalate, d/c Rocephin, no sign of pneumonia). Cont home O2, pt is at baseline. Cont nebs. 2. Acute/chronic respiratory failure: Pt is now down to her home O2 level. Continue O2 by NC. 3. Hypertension: BP stable, no change in tx. 4. Type 2 diabetes mellitus, uncontrolled: BG's very elevated, likely due to steroids. Will add SSI to home insulin dosing. 5. Liver cirrhosis secondary to hepatitis C and alcoholism: Labs stable. 6. Hypothyroidism: Stable. 7. Morbid obesity and obstructive sleep apnea on CPAP: Continue CPAP. 8. Psoriasis, probably chronic psoriatic arthritis: Pt will need f/u as outpatient. 9. Hyperkalemia: D/c spironolactone (KCL and ACEI were d/c'd yesterday). Give insulin to lower sugars. Recheck K+ later today. 10. DVT proph: Lovenox. Problems: Plan of Care: see other orders Subjective Pt states she is still a bit under the weather. Denies fever, chest pain, vomiting, diarrhea, abd pain, dizziness, or muscle pain. States she is having a hard time getting the "drainage to break up." Says she feels like she needs to break it up to be able to get the cough to improve. Denies bloody sputum. Objective Vital Signs Date Time Temp Pulse Resp B/P (MAP) Pulse Ox O2 Delivery O2 Flow Rate FiO2 07/20/17 05:15 98 Nasal Cannula 2.5 07/20/17 05:14 98.3 72 24 143/81 (101) Intake and Output 07/20/17 07:00 Intake Total 2250 ml Balance 2250 ml Intake Oral 2250 ml # Voids 2 # Bowel Movements 1 Abdomen: Soft, No tenderness, No masses, Other (Morbidly obese) Heart: Regular rate, Normal S1, Normal S2, No murmurs Extremities: Other (Thickened edema BLE, no calf TTP) General: Alert, Cooperative, No acute distress HEENT: PERRLA, EOMI, Mucous membr. moist/pink Lungs: Other (Diffusely diminished breath sounds bilaterally, no resp distress , dry barky cough) Neck: No JVD, No LAD Neuro: Strength at 5/5 X4 ext, Normal tone, Cranial nerves 3-12 NL Psych/Mental Status: Mental status NL, Mood NL Skin: No breakdown Review of Relevant I have reviewed the following items gabriella (where applicable) has been applied. Labs Laboratory Tests Test 07/18/17 11:43 07/18/17 17:02 07/18/17 22:10 07/19/17 06:14 Glucose (Fingerstick) 221 mg/dL (70-99) 273 mg/dL (70-99) 244 mg/dL (70-99) White Blood Count 4.5 x10^3/uL (4.0-11.0) Red Blood Count 3.88 x10^6/uL (3.50-5.40) Hemoglobin 11.6 g/dL (12.0-15.5) Hematocrit 35.1 % (36.0-47.0) Mean Corpuscular Volume 90 fL (79-100) Mean Corpuscular Hemoglobin 30 pg (25-35) Mean Corpuscular Hemoglobin Concent 33 g/dL (31-37) Red Cell Distribution Width 13.9 % (11.5-14.5) Platelet Count 93 x10^3/uL (140-400) Sodium Level 130 mmol/L (136-145) Potassium Level 5.6 mmol/L (3.5-5.1) Chloride Level 97 mmol/L (98-107) Carbon Dioxide Level 33 mmol/L (21-32) Anion Gap 0 (6-14) Blood Urea Nitrogen 28 mg/dL (7-20) Creatinine 1.1 mg/dL (0.6-1.0) Estimated GFR (Cockcroft-Gault) 62.2 BUN/Creatinine Ratio 25 (6-20) Glucose Level 389 mg/dL (70-99) Calcium Level 8.5 mg/dL (8.5-10.1) Total Bilirubin 0.2 mg/dL (0.2-1.0) Aspartate Amino Transf (AST/SGOT) 31 U/L (15-37) Alanine Aminotransferase (ALT/SGPT) 44 U/L (14-59) Alkaline Phosphatase 119 U/L (46-116) Total Protein 6.6 g/dL (6.4-8.2) Albumin 2.2 g/dL (3.4-5.0) Albumin/Globulin Ratio 0.5 (1.0-1.7) Test 07/19/17 08:14 07/19/17 11:37 07/19/17 13:52 07/19/17 16:40 Glucose (Fingerstick) 366 mg/dL (70-99) 264 mg/dL (70-99) 293 mg/dL (70-99) Sodium Level 131 mmol/L (136-145) Potassium Level 4.9 mmol/L (3.5-5.1) Chloride Level 97 mmol/L (98-107) Carbon Dioxide Level 32 mmol/L (21-32) Anion Gap 2 (6-14) Blood Urea Nitrogen 27 mg/dL (7-20) Creatinine 1.1 mg/dL (0.6-1.0) Estimated GFR (Cockcroft-Gault) 62.2 Glucose Level 293 mg/dL (70-99) Calcium Level 8.5 mg/dL (8.5-10.1) Test 07/19/17 20:43 07/20/17 05:51 07/20/17 07:27 Glucose (Fingerstick) 233 mg/dL (70-99) 300 mg/dL (70-99) Sodium Level 130 mmol/L (136-145) Potassium Level 5.7 mmol/L (3.5-5.1) Chloride Level 97 mmol/L (98-107) Carbon Dioxide Level 33 mmol/L (21-32) Anion Gap 0 (6-14) Blood Urea Nitrogen 26 mg/dL (7-20) Creatinine 1.1 mg/dL (0.6-1.0) Estimated GFR (Cockcroft-Gault) 62.2 Glucose Level 346 mg/dL (70-99) Calcium Level 8.4 mg/dL (8.5-10.1) Magnesium Level 2.0 mg/dL (1.8-2.4) Medications Current Medications Albuterol/ Ipratropium (Duoneb) 3 ml 1X ONCE NEB Last administered on at 18:44; Start 07/15/17 at 18:45; Stop 07/15/17 at 18:46; Status DC Methylprednisolone Sodium Succinate (SOLU-Medrol 125MG VIAL) 125 mg 1X ONCE IV Last administered on 07/15/17at 18:55; Start 07/15/17 at 18:45; Stop 07/15/17 at 18:46; Status DC Azithromycin (Zithromax) 500 mg 1X ONCE PO Last administered on 07/15/17at 18: 55; Start 07/15/17 at 18:45; Stop 07/15/17 at 18:46; Status DC Albuterol/ Ipratropium (Duoneb) 3 ml 1X ONCE NEB ; Start 07/15/17 at 18:45; Stop 07/15/17 at 18:45; Status DC Albuterol/ Ipratropium (Duoneb) 3 ml 1X ONCE NEB ; Start 07/15/17 at 18:45; Stop 07/15/17 at 18:45; Status DC Ondansetron HCl (Zofran) 4 mg PRN Q4HRS PRN IV NAUSEA/VOMITING; Start 07/15/17 at 21:00; Stop 07/16/17 at 20:59; Status DC Morphine Sulfate (Morphine 4mg Syringe) 4 mg PRN Q2HR PRN IV PAIN Last administered on 07/16/17at 01:35; Start 07/15/17 at 21:00; Stop 07/16/17 at 20:59 ; Status DC Acetaminophen (Tylenol) 650 mg PRN Q4HRS PRN PO FEVER; Start 07/15/17 at 21:00 ; Stop 07/16/17 at 20:59; Status DC Albuterol/ Ipratropium (Duoneb) 3 ml RTQID NEB ; Start 07/16/17 at 08:00; Stop 07/16/17 at 08:00; Status DC Methylprednisolone Sodium Succinate (SOLU-Medrol 40MG VIAL) 40 mg Q6HRS IV Last administered on 07/18/17at 12:16; Start 07/16/17 at 00:00; Stop 07/18/17 at 12:56; Status DC Albuterol Sulfate (Ventolin Hfa) 2 puff PRN Q6HRS PRN INH SHORTNESS OF BREATH; Start 07/16/17 at 00:45; Status UNV Carvedilol (Coreg) 12.5 mg BIDWMEALS PO Last administered on 07/19/17at 16:41; Start 07/16/17 at 08:00 Diclofenac Sodium (Voltaren) 1 alva BID TP Last administered on 07/19/17at 21:00 ; Start 07/16/17 at 09:00 Furosemide (Lasix) 20 mg DAILY16 PO Last administered on 07/19/17 16:41; Start 07/16/17 at 16:00 Furosemide (Lasix) 40 mg DAILY08 PO Last administered on 07/19/17 08:29; Start 07/16/17 at 08:00 Hydrocortisone (Cortaid) 1 alva PRN BID PRN TP ITCHING Last administered on 07/16 21:58; Start 07/16/17 at 00:45 Lisinopril (Prinivil) 10 mg DAILY PO Last administered on 07/19/17 08:30; Start 07/16/17 at 09:00; Stop 07/19/17 at 16:14; Status DC Meloxicam (Mobic) 15 mg DAILY PO Last administered on 07/19/17 08:30; Start at 09:00 Methocarbamol (Robaxin) 750 mg BID PO Last administered on 07/19/17 21:20; Start 07/16/17 at 09:00 Nystatin (Mycostatin) 1 alva BID TP Last administered on 07/19/17 21:00; Start 07/16/17 at 09:00 Potassium Chloride (Klor-Con) 20 meq BID PO Last administered on 07/18/17 20: 24; Start 07/16/17 at 09:00; Stop 07/19/17 at 16:14; Status DC Spironolactone (Aldactone) 25 mg BID PO Last administered on 07/19/17 21:20; Start 07/16/17 at 09:00; Stop 07/20/17 at 07:41; Status DC Tizanidine HCl (Zanaflex) 4 mg HS PO Last administered on 07/19/17 21:21; Start 07/16/17 at 21:00 Diazepam (Valium) 10 mg PRN BID PRN PO ANXIETY / AGITATION; Start 07/16/17 at 01:30 Gabapentin (Neurontin) 600 mg TID PO Last administered on 07/19/17 13:59; Start 07/16/17 at 09:00; Stop 07/19/17 at 14:03; Status DC Insulin Detemir (Levemir) 24 units QHS SQ Last administered on 3/18/18at 21:43 ; Start 07/16/17 at 21:00 Insulin Aspart (NovoLOG) 24 units BIDBFRMEAL SQ Last administered on 07/16/17at 12:11; Start 07/16/17 at 07:30; Stop 07/16/17 at 14:23; Status DC Non-Formulary Medication (Liraglutide (Victoza 3-Jude)) 1.8 mg DAILY SQ Last administered on 07/19/17 08:44; Start 07/16/17 at 09:00 Oxycodone HCl (Roxicodone) 15 mg PRN Q4HRS PRN PO SEVERE PAIN Last administered on 07/19/17at 13:59; Start 07/16/17 at 01:30 Oxycodone HCl (OxyCONTIN) 60 mg Q8HRS PO Last administered on 07/19/17at 21:23; Start 07/16/17 at 06:30 Non-Formulary Medication (Tiotropium [place] (Spiriva)) 1 cap DAILY IH ; Start 07/16/17 at 09:00; Status UNV Zinc Oxide 1 alva PRN QID PRN TP ITCHING; Start 07/16/17 at 01:30 Zolpidem Tartrate (Ambien) 5 mg PRN QHS PRN PO INSOMNIA, MAY REPEAT X1 Last administered on 07/19/17at 01:47; Start 07/16/17 at 01:30 Modafinil (Provigil) 200 mg DAILY PO Last administered on 07/19/17at 08:29; Start 07/16/17 at 09:00 Pantoprazole Sodium (Protonix) 40 mg DAILYAC PO Last administered on 07/19/17at 08:30; Start 07/16/17 at 07:30 Gabapentin (Neurontin) 600 mg 1X ONCE PO Last administered on 07/16/17at 01:35 ; Start 07/16/17 at 01:30; Stop 07/16/17 at 01:31; Status DC Albuterol/ Ipratropium (Duoneb) 3 ml RTQID NEB Last administered on 07/20/17at 05:13; Start 07/16/17 at 08:00 Albuterol Sulfate (Ventolin) 2.5 mg PRN Q6HRS PRN NEB SHORTNESS OF BREATH; Start 07/16/17 at 01:30 Insulin Aspart (NovoLOG) 24 units TIDBFRMEAL SQ Last administered on 07/19/17 16:30; Start 07/16/17 at 16:30 Ceftriaxone Sodium 1 gm/ Sodium Chloride 50 ml @ 100 mls/hr Q24H IV ; Start at 15:15; Status UNV Azithromycin (Zithromax) 500 mg DAILYWSUP PO Last administered on 07/19/17 16: 40; Start 07/16/17 at 17:00 Montelukast Sodium (Singulair) 10 mg QHS PO Last administered on 07/19/17 21: 20; Start 07/16/17 at 21:00 Ceftriaxone Sodium (Rocephin) 1 gm Q24H IVP Last administered on 07/19/17 16: 41; Start 07/16/17 at 16:00; Stop 07/20/17 at 07:41; Status DC Lactobacillus Rhamnosus (Culturelle) 1 cap BID PO Last administered on 21:20; Start 07/17/17 at 09:00 Guaifenesin (Mucinex Er) 600 mg BID PO Last administered on 07/19/17 21:20; Start 07/18/17 at 21:00 Methylprednisolone Sodium Succinate (SOLU-Medrol 40MG VIAL) 40 mg Q8H IV Last administered on 07/19/17at 11:47; Start 07/18/17 at 20:00; Stop 07/19/17 at 16:14 ; Status DC Enoxaparin Sodium (Lovenox 60mg Syringe) 60 mg Q12HR SQ Last administered on 21:20; Start 07/18/17 at 21:00 Enoxaparin Sodium (Lovenox) 60 mg Q12H SQ ; Start 07/19/17 at 18:00; Stop at 18:00; Status DC Non-Formulary Medication 1 ea BID INH Last administered on 07/19/17 21:20; Start 07/18/17 at 21:00 Gabapentin (Neurontin) 600 mg DAILY@0900,1100,1700 PO Last administered on 07/19 16:40; Start 07/19/17 at 17:00 Methylprednisolone Sodium Succinate (SOLU-Medrol 40MG VIAL) 40 mg Q12H IV Last administered on 3/19/18at 00:11; Start 07/20/17 at 00:00 Active Scripts Active Reported Metronidazole 70 Gm Gel.w.appl 1 Alva TP DAILY Centany (Mupirocin) 30 Gm Oint...g. 1 Alva TP BID Calcipotriene 60 Gm Cream..g. 1 Alva TP BID Clobetasol Propionate 15 Gm Oint...g. 15 Gm TP BID Desitin (Zinc Oxide) 57 Gm Cream..g. 57 Gm TP PRN PRN Nystatin 15 Gm Cream..g. 1 Alva TP BID Hydrocortisone 453.6 Gm Cream..g. 1 Alva TP PRN BID Voltaren (Diclofenac Sodium) 100 Gm Gel..gram. 1 Gm TP BID Victoza 3-Jude (Liraglutide) 0.6 Mg/0.1 Ml Pen.injctr 1.8 Mg SQ DAILY Lantus Solostar (Insulin Glargine,Hum.rec.anlog) 100 Unit/1 Ml Insuln.pen 24 Unit SQ QHS Oxycodone Hcl 30 Mg Tablet 0.5 Tab PO Q4HRS PRN Oxycontin (Oxycodone HCl) 60 Mg Tab.er.12h 60 Mg PO Q8HRS PRN Proair Hfa Inhaler (Albuterol Sulfate) 8.5 Gm Hfa.aer.ad 2 Puff INH PRN Q6HRS PRN Spiriva (Tiotropium [place]) 18 Mcg Cap.w.dev 1 Cap IH DAILY Meloxicam 15 Mg Tablet 15 Mg PO DAILY Carvedilol 12.5 Mg Tablet 12.5 Mg PO BIDWMEALS Spironolactone 25 Mg Tablet 25 Mg PO BID Ambien (Zolpidem Tartrate) 10 Mg Tablet 10 Mg PO QHS PRN Klor-Con M20 (Potassium Chloride) 20 Meq Tab.er.prt 20 Meq PO BID Gabapentin 600 Mg Tablet 600 Mg PO TID Omeprazole 20 Mg Tablet.dr 20 Mg PO DAILY Lasix (Furosemide) 20 Mg Tablet 20 Mg PO DAILY16 Lasix (Furosemide) 40 Mg Tablet 40 Mg PO DAILY08 Lisinopril 10 Mg Tablet 1 Tab PO DAILY Tizanidine Hcl (Tizanidine HCl) 4 Mg Tablet 4 Mg PO HS Robaxin-750 (Methocarbamol) 750 Mg Tablet 1 Tab PO BID Modafinil 200 Mg Tablet 200 Mg PO DAILY Valium (Diazepam) 10 Mg Tablet 10 Mg PO BID PRN Humalog Kwikpen (Insulin Lispro) 200 Unit/1 Ml Insuln.pen 24 Unit SQ TIDWMEALS LAST DOSE GIVEN: DATE: TIME: NEXT DOSE DUE: DATE: TIME: Vitals/I & O Vital Sign - Last 24 Hours 07/19/17 07/19/17 07/19/17 07/19/17 08:00 08:30 08:30 10:48 Temp 98.0 Pulse 62 62 57 Resp 26 B/P (MAP) 138/72 138/72 111/59 (76) Pulse Ox 95 O2 Delivery Nasal Cannula Nasal Cannula O2 Flow Rate 2.5 2.0 07/19/17 07/19/17 07/19/17 07/19/17 10:53 13:59 15:15 15:46 Pulse Ox 98 98 98 99 O2 Delivery Nasal Cannula Nasal Cannula Nasal Cannula Nasal Cannula O2 Flow Rate 2.5 2.5 2.5 2.5 07/19/17 07/19/17 07/19/17 07/19/17 15:50 16:41 19:58 20:00 Temp 97.5 98.4 Pulse 65 65 74 Resp 22 22 B/P (MAP) 141/68 (92) 141/68 109/65 (80) Pulse Ox 99 96 O2 Delivery Nasal Cannula Nasal Cannula Nasal Cannula O2 Flow Rate 2.5 2.5 07/19/17 07/19/17 07/19/17 07/20/17 20:10 21:23 22:34 01:23 Temp 98.1 Pulse 66 Resp 20 B/P (MAP) 118/72 (87) Pulse Ox 99 99 97 97 O2 Delivery Nasal Cannula Nasal Cannula Nasal Cannula Nasal Cannula O2 Flow Rate 2.5 2.5 2.5 2.5 07/20/17 07/20/17 05:14 05:15 Temp 98.3 Pulse 72 Resp 24 B/P (MAP) 143/81 (101) Pulse Ox 97 98 O2 Delivery Nasal Cannula Nasal Cannula O2 Flow Rate 2.5 2.5 Intake and Output 07/19/17 07/19/17 07/20/17 15:00 23:00 07:00 Intake Total 1450 ml 800 ml Balance 1450 ml 800 ml TAVO SUAREZ MD Jul 20, 2017 07:52
[2017-07-20] MEDS ORDERED: DEXTROSE 50% 25 GM / 50ML DISP.SYRIN. IV PRN (08:00)
[2017-07-20] MEDS: oxyCODONE ER 20 MG TAB.ER.12H PO SCH ×3 (08:43→21:43)
[2017-07-20] MEDS: MODAFINIL 100 MG TABLET PO SCH (08:43)
[2017-07-20] MEDS: METHOCARBAMOL 750 MG TABLET PO SCH ×2 (08:43→21:39)
[2017-07-20] MEDS: MELOXICAM 15 MG TABLET. PO SCH (08:44)
[2017-07-20] MEDS: ENOXAPARIN ** NOTE DOSE ** SYRINGE SQ SCH ×2 (08:44→21:39)
[2017-07-20] MEDS: PANTOPRAZOLE 40 MG TABLET. PO SCH (08:44)
[2017-07-20] MEDS: FUROSEMIDE 40 MG TABLET PO SCH (08:44)
[2017-07-20] MEDS: CARVEDILOL 12.5 MG TABLET PO SCH ×2 (08:44→17:10)
[2017-07-20] MEDS: LACTOBACILLUS RHAMNOSUS GG 1 CAPSULE. PO SCH ×2 (08:44→21:39)
[2017-07-20] MEDS: GABAPENTIN 300 MG CAPSULE. PO SCH ×3 (08:44→17:11)
[2017-07-20] MEDS: NON FORMULARY ITEM (Liraglutide (Victoza 3-Pak) 1.8 MG) SQ SCH (08:46)
[2017-07-20] MEDS: INSULIN ASPART 300 UNITS/3 ML INSULN.PEN SQ SCH ×5 (08:47→17:12)
[2017-07-20] MEDS: methylPREDNISolone SOD SUCC PF 40 MG/ML VIAL. IV SCH (09:42)
[2017-07-20] MEDS: DICLOFENAC SODIUM 1% TOPICAL GEL 100GM TUBE. TP SCH ×2 (09:44→21:45)
[2017-07-20] MEDS: NYSTATIN 100,000 UNIT/GM TOPICAL CREAM 15GM TUBE. TP SCH ×2 (09:44→21:48)
[2017-07-20] MEDS: [UNRECOGNIZED DRUG - OTHER] INH SCH ×2 (10:13→21:38)
[2017-07-20] MEDS: oxyCODONE IR 5 MG TABLET PO PRN (10:42)
[2017-07-20 11:09] VITALS: BP 144/87
[2017-07-20 14:39] VITALS: BP 119/73
[2017-07-20 14:58] LABS: CALCIUM 8.9 mg/dL (8.5-10.1); CREATININE 1.1 mg/dL (0.6-1.0); GFR 62.2; POTASSIUM 4.9 mmol/L (3.5-5.1)
[2017-07-20] MEDS: FUROSEMIDE 20 MG TABLET PO SCH (17:10)
[2017-07-20] MEDS: AZITHROMYCIN 250 MG TABLET. PO SCH (17:10)
[2017-07-20 19:58] VITALS: BP 154/81
[2017-07-20] MEDS: MONTELUKAST 10 MG TABLET. PO SCH (21:40)
[2017-07-20] MEDS: INSULIN DETEMIR 300 UNITS/3 ML INSULN.PEN. SQ SCH (21:49)
[2017-07-20] MEDS: tiZANidine 4 MG TABLET. PO SCH (21:51)
[2017-07-20 23:37] VITALS: BP 138/79
[2017-07-20] MEDS: ZOLPIDEM 5 MG TABLET. PO PRN (23:55)
[2017-07-20] MEDS ORDERED: GABAPENTIN 300 MG CAPSULE. PO ONE (23:59)
[2017-07-21 05:24] VITALS: BP 113/72
[2017-07-21] MEDS: oxyCODONE ER 20 MG TAB.ER.12H PO SCH ×2 (05:37→14:33)
[2017-07-21] MEDS: IPRATRPIUM/ALBUTEROL 0.5/2.5MG 3 ML NEBU. NEB SCH ×4 (06:07→20:20)
[2017-07-21] MEDS: methylPREDNISolone SOD SUCC PF 40 MG/ML VIAL. IV SCH (08:41)
[2017-07-21] MEDS: NON FORMULARY ITEM (Liraglutide (Victoza 3-Pak) 1.8 MG) SQ SCH (08:45)
[2017-07-21] MEDS: INSULIN ASPART 300 UNITS/3 ML INSULN.PEN SQ SCH ×6 (08:46→17:10)
[2017-07-21] MEDS: NYSTATIN 100,000 UNIT/GM TOPICAL CREAM 15GM TUBE. TP SCH (08:52)
[2017-07-21] MEDS: DICLOFENAC SODIUM 1% TOPICAL GEL 100GM TUBE. TP SCH (09:00)
[2017-07-21] MEDS: ENOXAPARIN ** NOTE DOSE ** SYRINGE SQ SCH (09:45)
[2017-07-21] MEDS: GABAPENTIN 300 MG CAPSULE. PO SCH ×3 (09:45→17:03)
[2017-07-21] MEDS: METHOCARBAMOL 750 MG TABLET PO SCH (09:46)
[2017-07-21] MEDS: FUROSEMIDE 40 MG TABLET PO SCH (09:46)
[2017-07-21] MEDS: CARVEDILOL 12.5 MG TABLET PO SCH ×2 (09:46→17:03)
[2017-07-21] MEDS: PANTOPRAZOLE 40 MG TABLET. PO SCH (09:46)
[2017-07-21] MEDS: MELOXICAM 15 MG TABLET. PO SCH (09:46)
[2017-07-21] MEDS: MODAFINIL 100 MG TABLET PO SCH (09:46)
[2017-07-21] MEDS: LACTOBACILLUS RHAMNOSUS GG 1 CAPSULE. PO SCH (09:47)
[2017-07-21] MEDS: [UNRECOGNIZED DRUG - OTHER] INH SCH (09:56)
[2017-07-21] MEDS: diazePAM 5 MG TABLET PO PRN ×2 (10:03→20:21)
[2017-07-21 11:04] VITALS: BP 93/64
[2017-07-21] MEDS ORDERED: BENZ100C PO (13:50)
[2017-07-21] MEDS ORDERED: AZIT250T6 PO (13:50)
[2017-07-21] MEDS ORDERED: GUAI600T47 PO (13:50)
--- NOTE | 2017-07-21 13:54 | DISCH ---
DISCHARGE INSTRUCTIONS-DC Condition on Discharge Condition on Discharge: Stable Problems: Activity after Discharge Activity Instructions for Disc: Activity as tolerated Diet after Discharge Diet after Discharge: Diabetic No Calorie Level Checks after Discharge Checks after discharge: Check blood sugar, ac/hs Community/Resources/Services Services at Discharge: Home Health Care Services Contacting the DRNatalia after DC Call your doctor for: If your condition worsens Follow-Up Follow up with: PCP in 1-2 weeks Treatment/Equipment after DC Discharge Respiratory Equipmen: Oxygen, Nebulizer, CPAP TAVO SUAREZ MD Jul 21, 2017 13:54
--- NOTE | 2017-07-21 13:54 | DISCH ---
DISCHARGE WITH HOME HEALTH DISCHARGE INFORMATION: Discharge Date: Jul 21, 2017 Final Diagnosis Problems Medical Problems: (1) COPD exacerbation Status: Acute Condition on Discharge: Stable HOME HEALTH: Face to Face Attestation: Pt seen on 07/21/17 in hospital Medical Condition(s): COPD Snf For: Assess Cardiopulm Status Home Health Aide For: Self-care Patient meets Homebound Statu: Extreme weakness w/ amb. FOLLOW UP: Follow up with: PCP in 1-2 weeks TREATMENT/EQUIPMENT ORDERS: Discharge Respiratory Equipmen: Oxygen, Nebulizer, CPAP CERTIFICATION STATEMENT: Certification Statement: Certification Statement: Based on the above finding, I certify that this patient is confined to the home and needs intermittent alf care, physical therapy and/or speech therapy, or continues to need occupational therapy.~ This patient is under my care, and I have initiated the establishment of the plan of care.~ This patient will be followed by her PCP Kamari Andrade who will periodically review the plan of care. TAVO SUAREZ MD Jul 21, 2017 13:54
--- NOTE | 2017-07-21 13:58 | PDOC3 ---
Discharge Summary Discharge Summary Date of Admission Date of Admission: Jul 15, 2017 at 21:00 Admitting Diagnosis COPD exacerbation Diabetes Acute on chronic respiratory failure Date of Discharge: Jul 21, 2017 Discharge Diagnosis COPD exacerbation Diabetes Acute on chronic respiratory failure Laboratory Findings Laboratory Tests Test 07/15/17 18:46 07/15/17 22:56 07/16/17 11:42 07/16/17 15:10 White Blood Count 3.7 x10^3/uL (4.0-11.0) Red Blood Count 3.87 x10^6/uL (3.50-5.40) Hemoglobin 11.6 g/dL (12.0-15.5) Hematocrit 34.9 % (36.0-47.0) Mean Corpuscular Volume 90 fL (79-100) Mean Corpuscular Hemoglobin 30 pg (25-35) Mean Corpuscular Hemoglobin Concent 33 g/dL (31-37) Red Cell Distribution Width 14.2 % (11.5-14.5) Platelet Count 105 x10^3/uL (140-400) Neutrophils (%) (Auto) 49 % (31-73) Lymphocytes (%) (Auto) 22 % (24-48) Monocytes (%) (Auto) 25 % (0-9) Eosinophils (%) (Auto) 3 % (0-3) Basophils (%) (Auto) 1 % (0-3) Neutrophils # (Auto) 1.8 x10^3uL (1.8-7.7) Lymphocytes # (Auto) 0.8 x10^3/uL (1.0-4.8) Monocytes # (Auto) 0.9 x10^3/uL (0.0-1.1) Eosinophils # (Auto) 0.1 x10^3/uL (0.0-0.7) Basophils # (Auto) 0.0 x10^3/uL (0.0-0.2) Segmented Neutrophils % 54 % (35-66) Lymphocytes % 13 % (24-48) Atypical Lymphocytes % (Manual) 8 % (0-0) Monocytes % 23 % (0-10) Basophils % 2 % (0-3) Platelet Estimate Decreased (ADEQUATE) Basophilic Stippling Present Target Cells Few Tear Drop Cells Few Sodium Level 134 mmol/L (136-145) Potassium Level 5.2 mmol/L (3.5-5.1) Chloride Level 99 mmol/L (98-107) Carbon Dioxide Level 33 mmol/L (21-32) Anion Gap 2 (6-14) Blood Urea Nitrogen 15 mg/dL (7-20) Creatinine 1.1 mg/dL (0.6-1.0) Estimated GFR (Cockcroft-Gault) 62.2 BUN/Creatinine Ratio 14 (6-20) Glucose Level 91 mg/dL (70-99) Hemoglobin A1c 5.0 % (4.8-5.6) Calcium Level 8.8 mg/dL (8.5-10.1) Total Bilirubin 0.3 mg/dL (0.2-1.0) Aspartate Amino Transf (AST/SGOT) 39 U/L (15-37) Alanine Aminotransferase (ALT/SGPT) 27 U/L (14-59) Alkaline Phosphatase 152 U/L (46-116) Troponin I Quantitative < 0.017 ng/mL (0-0.055) Total Protein 7.7 g/dL (6.4-8.2) Albumin 2.6 g/dL (3.4-5.0) Albumin/Globulin Ratio 0.5 (1.0-1.7) Nasal Screen MRSA (PCR) Positive (Negative) Glucose (Fingerstick) 171 mg/dL (70-99) Influenza Type A (Rapid) Negative (NEGATIVE) Influenza Type B (Rapid) Negative (NEGATIVE) Test 07/16/17 16:33 07/16/17 19:59 07/17/17 05:15 07/17/17 08:11 Glucose (Fingerstick) 203 mg/dL (70-99) 214 mg/dL (70-99) 215 mg/dL (70-99) White Blood Count 4.6 x10^3/uL (4.0-11.0) Red Blood Count 3.88 x10^6/uL (3.50-5.40) Hemoglobin 11.7 g/dL (12.0-15.5) Hematocrit 35.1 % (36.0-47.0) Mean Corpuscular Volume 91 fL (79-100) Mean Corpuscular Hemoglobin 30 pg (25-35) Mean Corpuscular Hemoglobin Concent 33 g/dL (31-37) Red Cell Distribution Width 14.1 % (11.5-14.5) Platelet Count 91 x10^3/uL (140-400) Prothrombin Time 13.3 SEC (9.4-11.4) Prothromb Time International Ratio 1.3 (0.9-1.1) Sodium Level 132 mmol/L (136-145) Potassium Level 4.7 mmol/L (3.5-5.1) Chloride Level 97 mmol/L (98-107) Carbon Dioxide Level 31 mmol/L (21-32) Anion Gap 4 (6-14) Blood Urea Nitrogen 21 mg/dL (7-20) Creatinine 1.1 mg/dL (0.6-1.0) Estimated GFR (Cockcroft-Gault) 62.2 BUN/Creatinine Ratio 19 (6-20) Glucose Level 253 mg/dL (70-99) Calcium Level 8.8 mg/dL (8.5-10.1) Total Bilirubin 0.3 mg/dL (0.2-1.0) Aspartate Amino Transf (AST/SGOT) 26 U/L (15-37) Alanine Aminotransferase (ALT/SGPT) 25 U/L (14-59) Alkaline Phosphatase 127 U/L (46-116) Ammonia 11 mcmol/L (11-34) Total Protein 7.5 g/dL (6.4-8.2) Albumin 2.4 g/dL (3.4-5.0) Albumin/Globulin Ratio 0.5 (1.0-1.7) Test 07/17/17 11:43 07/17/17 16:55 07/17/17 20:23 07/18/17 07:34 Glucose (Fingerstick) 234 mg/dL (70-99) 295 mg/dL (70-99) 278 mg/dL (70-99) 252 mg/dL (70-99) Test 07/18/17 11:43 07/18/17 17:02 07/18/17 22:10 07/19/17 06:14 Glucose (Fingerstick) 221 mg/dL (70-99) 273 mg/dL (70-99) 244 mg/dL (70-99) White Blood Count 4.5 x10^3/uL (4.0-11.0) Red Blood Count 3.88 x10^6/uL (3.50-5.40) Hemoglobin 11.6 g/dL (12.0-15.5) Hematocrit 35.1 % (36.0-47.0) Mean Corpuscular Volume 90 fL (79-100) Mean Corpuscular Hemoglobin 30 pg (25-35) Mean Corpuscular Hemoglobin Concent 33 g/dL (31-37) Red Cell Distribution Width 13.9 % (11.5-14.5) Platelet Count 93 x10^3/uL (140-400) Sodium Level 130 mmol/L (136-145) Potassium Level 5.6 mmol/L (3.5-5.1) Chloride Level 97 mmol/L (98-107) Carbon Dioxide Level 33 mmol/L (21-32) Anion Gap 0 (6-14) Blood Urea Nitrogen 28 mg/dL (7-20) Creatinine 1.1 mg/dL (0.6-1.0) Estimated GFR (Cockcroft-Gault) 62.2 BUN/Creatinine Ratio 25 (6-20) Glucose Level 389 mg/dL (70-99) Calcium Level 8.5 mg/dL (8.5-10.1) Total Bilirubin 0.2 mg/dL (0.2-1.0) Aspartate Amino Transf (AST/SGOT) 31 U/L (15-37) Alanine Aminotransferase (ALT/SGPT) 44 U/L (14-59) Alkaline Phosphatase 119 U/L (46-116) Total Protein 6.6 g/dL (6.4-8.2) Albumin 2.2 g/dL (3.4-5.0) Albumin/Globulin Ratio 0.5 (1.0-1.7) Test 07/19/17 08:14 07/19/17 11:37 07/19/17 13:52 07/19/17 16:40 Glucose (Fingerstick) 366 mg/dL (70-99) 264 mg/dL (70-99) 293 mg/dL (70-99) Sodium Level 131 mmol/L (136-145) Potassium Level 4.9 mmol/L (3.5-5.1) Chloride Level 97 mmol/L (98-107) Carbon Dioxide Level 32 mmol/L (21-32) Anion Gap 2 (6-14) Blood Urea Nitrogen 27 mg/dL (7-20) Creatinine 1.1 mg/dL (0.6-1.0) Estimated GFR (Cockcroft-Gault) 62.2 Glucose Level 293 mg/dL (70-99) Calcium Level 8.5 mg/dL (8.5-10.1) Test 07/19/17 20:43 07/20/17 05:51 07/20/17 07:27 07/20/17 11:42 Glucose (Fingerstick) 233 mg/dL (70-99) 300 mg/dL (70-99) 252 mg/dL (70-99) Sodium Level 130 mmol/L (136-145) Potassium Level 5.7 mmol/L (3.5-5.1) Chloride Level 97 mmol/L (98-107) Carbon Dioxide Level 33 mmol/L (21-32) Anion Gap 0 (6-14) Blood Urea Nitrogen 26 mg/dL (7-20) Creatinine 1.1 mg/dL (0.6-1.0) Estimated GFR (Cockcroft-Gault) 62.2 Glucose Level 346 mg/dL (70-99) Calcium Level 8.4 mg/dL (8.5-10.1) Magnesium Level 2.0 mg/dL (1.8-2.4) Test 07/20/17 14:35 07/20/17 21:03 07/21/17 07:45 07/21/17 11:48 Sodium Level 131 mmol/L (136-145) Potassium Level 4.9 mmol/L (3.5-5.1) Chloride Level 96 mmol/L (98-107) Carbon Dioxide Level 32 mmol/L (21-32) Anion Gap 3 (6-14) Blood Urea Nitrogen 27 mg/dL (7-20) Creatinine 1.1 mg/dL (0.6-1.0) Estimated GFR (Cockcroft-Gault) 62.2 Glucose Level 291 mg/dL (70-99) Calcium Level 8.9 mg/dL (8.5-10.1) Glucose (Fingerstick) 270 mg/dL (70-99) 178 mg/dL (70-99) 211 mg/dL (70-99) Hospital Course Pt admitted due to COPD exacerbation. Continued on home meds. Lisinopril held due to BP in low normal range. Spironolactone held for same reason. No other changes made to meds. Pt treated w/ abx. Lovenox for DVT prophylaxis. Received CPAP at night. Pt to be d/c'd to home w/ home O2 requirement of 2.5 liters. F/u with PCP in 1-2 weeks. HH arranged for fpc. Check sugars QID. Treatment EXAM: Abdomen: Soft, No tenderness, No masses, Other (Morbidly obese) Heart: Regular rate, Normal S1, Normal S2, No murmurs Extremities: Other (Thickened edema BLE, no calf TTP) General: Alert, Cooperative, No acute distress HEENT: PERRLA, EOMI, Mucous membr. moist/pink Lungs: Other (Diffusely diminished breath sounds bilaterally, no resp distress , dry barky cough) Neck: No JVD, No LAD Neuro: Strength at 5/5 X4 ext, Normal tone, Cranial nerves 3-12 NL Psych/Mental Status: Mental status NL, Mood NL Skin: No breakdown Condition at Discharge: Stable Home Meds Reported Medications Metronidazole (METRONIDAZOLE) 70 Gm Gel.w.appl, 1 ALVA TP DAILY 07/17/17 Mupirocin (CENTANY) 30 Gm Oint...g., 1 ALVA TP BID 07/17/17 Calcipotriene (CALCIPOTRIENE) 60 Gm Cream..g., 1 ALVA TP BID, EACH 07/17/17 Clobetasol Propionate (CLOBETASOL PROPIONATE) 15 Gm Oint...g., 15 GM TP BID 07/17/17 Zinc Oxide (Desitin) 57 Gm Cream..g., 57 GM TP PRN Y for RASH, EACH 07/16/17 Nystatin (NYSTATIN) 15 Gm Cream..g., 1 ALVA TP BID, #30 GM 07/16/17 Hydrocortisone (HYDROCORTISONE) 453.6 Gm Cream..g., 1 ALVA TP PRN BID, #30 GM 18 Diclofenac Sodium (VOLTAREN) 100 Gm Gel..gram., 1 GM TP BID for PAIN, #100 GM 2 Refills 07/16/17 Liraglutide (VICTOZA 3-JUDE) 0.6 Mg/0.1 Ml Pen.injctr, 1.8 MG SQ DAILY, #9 ML 3 Refills 07/16/17 Insulin Glargine,Hum.rec.anlog (LANTUS SOLOSTAR) 100 Unit/1 Ml Insuln.pen, 24 UNIT SQ QHS, #15 ML 5 Refills 07/16/17 Oxycodone Hcl (OXYCODONE HCL) 30 Mg Tablet, 0.5 TAB PO Q4HRS Y for PAIN, #180 TAB 07/16/17 Oxycodone Hcl (OXYCONTIN) 60 Mg Tab.er.12h, 60 MG PO Q8HRS Y for PAIN, TAB 07/16/17 Albuterol Sulfate (PROAIR HFA INHALER) 8.5 Gm Hfa.aer.ad, 2 PUFF INH PRN Q6HRS Y for SHORTNESS OF BREATH, INHALER 0 Refills 07/16/17 Tiotropium [place] (SPIRIVA) 18 Mcg Cap.w.dev, 1 CAP IH DAILY, #30 CAP 3 Refills 07/16/17 Meloxicam (MELOXICAM) 15 Mg Tablet, 15 MG PO DAILY, TAB 07/16/17 Carvedilol (CARVEDILOL) 12.5 Mg Tablet, 12.5 MG PO BIDWMEALS, TAB 07/16/17 Spironolactone (SPIRONOLACTONE) 25 Mg Tablet, 25 MG PO BID, TAB 07/16/17 Zolpidem Tartrate (AMBIEN) 10 Mg Tablet, 10 MG PO QHS Y for INSOMNIA, TAB 0 Refills 07/16/17 Potassium Chloride (KLOR-CON M20) 20 Meq Tab.er.prt, 20 MEQ PO BID, TAB.SR 07/16/17 Gabapentin (GABAPENTIN) 600 Mg Tablet, 600 MG PO TID, TAB 07/16/17 Omeprazole (OMEPRAZOLE) 20 Mg Tablet.dr, 20 MG PO DAILY, TAB 07/16/17 Furosemide (LASIX) 20 Mg Tablet, 20 MG PO DAILY16, TAB 07/16/17 Furosemide (LASIX) 40 Mg Tablet, 40 MG PO DAILY08, #90 TAB 1 Refill 07/16/17 Lisinopril (LISINOPRIL) 10 Mg Tablet, 1 TAB PO DAILY, #30 TAB 5 Refills 07/16/17 Tizanidine Hcl (TIZANIDINE HCL) 4 Mg Tablet, 4 MG PO HS, TAB 07/16/17 Methocarbamol (ROBAXIN-750) 750 Mg Tablet, 1 TAB PO BID, #60 TAB 07/16/17 Modafinil (MODAFINIL) 200 Mg Tablet, 200 MG PO DAILY, TAB 07/16/17 Diazepam (VALIUM) 10 Mg Tablet, 10 MG PO BID Y for ANXIETY / AGITATION, TAB 11/30/15 Insulin Lispro (Humalog Kwikpen) 200 Unit/1 Ml Insuln.pen, 24 UNIT SQ TIDWMEALS for HIGH BLOOD SUGAR-DIABETES LAST DOSE GIVEN: DATE: TIME: NEXT DOSE DUE: DATE: TIME: 11/30/15 Discontinued Reported Medications Metronidazole (METRONIDAZOLE) 70 Gm Gel.w.appl, 70 GM TP, EACH 07/16/17 Mupirocin (MUPIROCIN) 22 Gm Oint...g., 1 ALVA TP BID, #22 GM 07/16/17 Calcipotriene (Dovonex) 60 Gm Cream..g., 1 GM TP BID, EACH 07/16/17 Clobetasol Propionate (CLOBETASOL PROPIONATE) 15 Gm Oint...g., 1 ALVA TP BID, # 15 GM 07/16/17 Polyethylene Glycol 3350 (GLYCOLAX) 119 Gm Powder, 119 GM PO DAILY 11/30/15 Lactulose (LACTULOSE) 10 Gm/15 Ml Solution, 10 GM PO DAILY 11/30/15 Naloxone HCl (Evzio) 0.4 Mg/0.4 Ml Auto.injct, 0.4 MG IJ PRN Y for SEE COMMENTS 11/30/15 Oxycodone Hcl (OXYCONTIN) 80 Mg Tab.er.12h, 80 MG PO TID, TAB 11/30/15 Lactose (LACTOSE) 454 Gm Powder, 454 GM MC 12/15/13 Inpatient Meds Current Medications Albuterol/ Ipratropium (Duoneb) 3 ml 1X ONCE NEB Last administered on at 18:44; Start 07/15/17 at 18:45; Stop 07/15/17 at 18:46; Status DC Methylprednisolone Sodium Succinate (SOLU-Medrol 125MG VIAL) 125 mg 1X ONCE IV Last administered on 07/15/17at 18:55; Start 07/15/17 at 18:45; Stop 07/15/17 at 18:46; Status DC Azithromycin (Zithromax) 500 mg 1X ONCE PO Last administered on 07/15/17at 18: 55; Start 07/15/17 at 18:45; Stop 07/15/17 at 18:46; Status DC Albuterol/ Ipratropium (Duoneb) 3 ml 1X ONCE NEB ; Start 07/15/17 at 18:45; Stop 07/15/17 at 18:45; Status DC Albuterol/ Ipratropium (Duoneb) 3 ml 1X ONCE NEB ; Start 07/15/17 at 18:45; Stop 07/15/17 at 18:45; Status DC Ondansetron HCl (Zofran) 4 mg PRN Q4HRS PRN IV NAUSEA/VOMITING; Start 07/15/17 at 21:00; Stop 07/16/17 at 20:59; Status DC Morphine Sulfate (Morphine 4mg Syringe) 4 mg PRN Q2HR PRN IV PAIN Last administered on 07/16/17at 01:35; Start 07/15/17 at 21:00; Stop 07/16/17 at 20:59 ; Status DC Acetaminophen (Tylenol) 650 mg PRN Q4HRS PRN PO FEVER; Start 07/15/17 at 21:00 ; Stop 07/16/17 at 20:59; Status DC Albuterol/ Ipratropium (Duoneb) 3 ml RTQID NEB ; Start 07/16/17 at 08:00; Stop 07/16/17 at 08:00; Status DC Methylprednisolone Sodium Succinate (SOLU-Medrol 40MG VIAL) 40 mg Q6HRS IV Last administered on 07/18/17at 12:16; Start 07/16/17 at 00:00; Stop 07/18/17 at 12:56; Status DC Albuterol Sulfate (Ventolin Hfa) 2 puff PRN Q6HRS PRN INH SHORTNESS OF BREATH; Start 07/16/17 at 00:45; Status UNV Carvedilol (Coreg) 12.5 mg BIDWMEALS PO Last administered on 07/21/17at 09:46; Start 07/16/17 at 08:00 Diclofenac Sodium (Voltaren) 1 alva BID TP Last administered on 07/20/17at 21:45 ; Start 07/16/17 at 09:00 Furosemide (Lasix) 20 mg DAILY16 PO Last administered on 07/20/17at 17:10; Start 07/16/17 at 16:00 Furosemide (Lasix) 40 mg DAILY08 PO Last administered on 07/21/17 09:46; Start 07/16/17 at 08:00 Hydrocortisone (Cortaid) 1 alva PRN BID PRN TP ITCHING Last administered on 07/16 21:58; Start 07/16/17 at 00:45 Lisinopril (Prinivil) 10 mg DAILY PO Last administered on 07/19/17 08:30; Start 07/16/17 at 09:00; Stop 07/19/17 at 16:14; Status DC Meloxicam (Mobic) 15 mg DAILY PO Last administered on 07/21/17 09:46; Start at 09:00 Methocarbamol (Robaxin) 750 mg BID PO Last administered on 07/21/17 09:46; Start 07/16/17 at 09:00 Nystatin (Mycostatin) 1 alva BID TP Last administered on 07/20/17 21:48; Start 07/16/17 at 09:00 Potassium Chloride (Klor-Con) 20 meq BID PO Last administered on 07/18/17 20: 24; Start 07/16/17 at 09:00; Stop 07/19/17 at 16:14; Status DC Spironolactone (Aldactone) 25 mg BID PO Last administered on 07/19/17 21:20; Start 07/16/17 at 09:00; Stop 07/20/17 at 07:41; Status DC Tizanidine HCl (Zanaflex) 4 mg HS PO Last administered on 07/20/17 21:51; Start 07/16/17 at 21:00 Diazepam (Valium) 10 mg PRN BID PRN PO ANXIETY / AGITATION Last administered on 07/21/17at 10:03; Start 07/16/17 at 01:30 Gabapentin (Neurontin) 600 mg TID PO Last administered on 07/19/17 13:59; Start 07/16/17 at 09:00; Stop 07/19/17 at 14:03; Status DC Insulin Detemir (Levemir) 24 units QHS SQ Last administered on 07/20/17at 21:49 ; Start 07/16/17 at 21:00 Insulin Aspart (NovoLOG) 24 units BIDBFRMEAL SQ Last administered on 07/16/17at 12:11; Start 07/16/17 at 07:30; Stop 07/16/17 at 14:23; Status DC Non-Formulary Medication (Liraglutide (Victoza 3-Jude)) 1.8 mg DAILY SQ Last administered on 07/21/17at 08:45; Start 07/16/17 at 09:00 Oxycodone HCl (Roxicodone) 15 mg PRN Q4HRS PRN PO SEVERE PAIN Last administered on 07/20/17at 10:42; Start 07/16/17 at 01:30 Oxycodone HCl (OxyCONTIN) 60 mg Q8HRS PO Last administered on 07/21/17at 05:37; Start 07/16/17 at 06:30 Non-Formulary Medication (Tiotropium [place] (Spiriva)) 1 cap DAILY IH ; Start 07/16/17 at 09:00; Status UNV Zinc Oxide 1 alva PRN QID PRN TP ITCHING; Start 07/16/17 at 01:30 Zolpidem Tartrate (Ambien) 5 mg PRN QHS PRN PO INSOMNIA, MAY REPEAT X1 Last administered on 07/20/17at 23:55; Start 07/16/17 at 01:30 Modafinil (Provigil) 200 mg DAILY PO Last administered on 07/21/17at 09:46; Start 07/16/17 at 09:00 Pantoprazole Sodium (Protonix) 40 mg DAILYAC PO Last administered on 07/21/17at 09:46; Start 07/16/17 at 07:30 Gabapentin (Neurontin) 600 mg 1X ONCE PO Last administered on 07/16/17at 01:35 ; Start 07/16/17 at 01:30; Stop 07/16/17 at 01:31; Status DC Albuterol/ Ipratropium (Duoneb) 3 ml RTQID NEB Last administered on 07/21/17at 11:08; Start 07/16/17 at 08:00 Albuterol Sulfate (Ventolin) 2.5 mg PRN Q6HRS PRN NEB SHORTNESS OF BREATH; Start 07/16/17 at 01:30 Insulin Aspart (NovoLOG) 24 units TIDBFRMEAL SQ Last administered on 07/21/17at 12:24; Start 07/16/17 at 16:30 Ceftriaxone Sodium 1 gm/ Sodium Chloride 50 ml @ 100 mls/hr Q24H IV ; Start at 15:15; Status UNV Azithromycin (Zithromax) 500 mg DAILYWSUP PO Last administered on 07/20/17at 17: 10; Start 07/16/17 at 17:00 Montelukast Sodium (Singulair) 10 mg QHS PO Last administered on 07/20/17at 21: 40; Start 07/16/17 at 21:00 Ceftriaxone Sodium (Rocephin) 1 gm Q24H IVP Last administered on 07/19/17at 16: 41; Start 07/16/17 at 16:00; Stop 07/20/17 at 07:41; Status DC Lactobacillus Rhamnosus (Culturelle) 1 cap BID PO Last administered on at 09:47; Start 07/17/17 at 09:00 Guaifenesin (Mucinex Er) 600 mg BID PO Last administered on 07/21/17 09:46; Start 07/18/17 at 21:00 Methylprednisolone Sodium Succinate (SOLU-Medrol 40MG VIAL) 40 mg Q8H IV Last administered on 07/19/17at 11:47; Start 07/18/17 at 20:00; Stop 07/19/17 at 16:14 ; Status DC Enoxaparin Sodium (Lovenox 60mg Syringe) 60 mg Q12HR SQ Last administered on at 09:45; Start 07/18/17 at 21:00 Enoxaparin Sodium (Lovenox) 60 mg Q12H SQ ; Start 07/19/17 at 18:00; Stop at 18:00; Status DC Non-Formulary Medication 1 ea BID INH Last administered on 07/21/17at 09:56; Start 07/18/17 at 21:00 Gabapentin (Neurontin) 600 mg DAILY@0900,1100,1700 PO Last administered on 07/21at 09:45; Start 07/19/17 at 17:00 Methylprednisolone Sodium Succinate (SOLU-Medrol 40MG VIAL) 40 mg Q12H IV Last administered on 07/20/17at 00:11; Start 07/20/17 at 00:00; Stop 07/20/17 at 07:55 ; Status DC Methylprednisolone Sodium Succinate (SOLU-Medrol 40MG VIAL) 40 mg DAILY IV Last administered on 07/21/17at 08:41; Start 07/20/17 at 09:00 Insulin Aspart (NovoLOG) 0-7 UNITS TIDBFRMEAL SQ Last administered on at 12:23; Start 07/20/17 at 11:30 Dextrose 12.5 gm PRN Q15MIN PRN IV SEE COMMENTS; Start 07/20/17 at 08:00 Gabapentin (Neurontin) 300 mg 1X ONCE PO Last administered on 07/20/17at 23:55 ; Start 07/20/17 at 23:59; Stop 07/21/17 at 00:00; Status DC Active Scripts Active Reported Metronidazole 70 Gm Gel.w.appl 1 Alva TP DAILY Centany (Mupirocin) 30 Gm Oint...g. 1 Alva TP BID Calcipotriene 60 Gm Cream..g. 1 Alva TP BID Clobetasol Propionate 15 Gm Oint...g. 15 Gm TP BID Desitin (Zinc Oxide) 57 Gm Cream..g. 57 Gm TP PRN PRN Nystatin 15 Gm Cream..g. 1 Alva TP BID Hydrocortisone 453.6 Gm Cream..g. 1 Alva TP PRN BID Voltaren (Diclofenac Sodium) 100 Gm Gel..gram. 1 Gm TP BID Victoza 3-Jude (Liraglutide) 0.6 Mg/0.1 Ml Pen.injctr 1.8 Mg SQ DAILY Lantus Solostar (Insulin Glargine,Hum.rec.anlog) 100 Unit/1 Ml Insuln.pen 24 Unit SQ QHS Oxycodone Hcl 30 Mg Tablet 0.5 Tab PO Q4HRS PRN Oxycontin (Oxycodone HCl) 60 Mg Tab.er.12h 60 Mg PO Q8HRS PRN Proair Hfa Inhaler (Albuterol Sulfate) 8.5 Gm Hfa.aer.ad 2 Puff INH PRN Q6HRS PRN Spiriva (Tiotropium [place]) 18 Mcg Cap.w.dev 1 Cap IH DAILY Meloxicam 15 Mg Tablet 15 Mg PO DAILY Carvedilol 12.5 Mg Tablet 12.5 Mg PO BIDWMEALS Spironolactone 25 Mg Tablet 25 Mg PO BID Ambien (Zolpidem Tartrate) 10 Mg Tablet 10 Mg PO QHS PRN Klor-Con M20 (Potassium Chloride) 20 Meq Tab.er.prt 20 Meq PO BID Gabapentin 600 Mg Tablet 600 Mg PO TID Omeprazole 20 Mg Tablet.dr 20 Mg PO DAILY Lasix (Furosemide) 20 Mg Tablet 20 Mg PO DAILY16 Lasix (Furosemide) 40 Mg Tablet 40 Mg PO DAILY08 Lisinopril 10 Mg Tablet 1 Tab PO DAILY Tizanidine Hcl (Tizanidine HCl) 4 Mg Tablet 4 Mg PO HS Robaxin-750 (Methocarbamol) 750 Mg Tablet 1 Tab PO BID Modafinil 200 Mg Tablet 200 Mg PO DAILY Valium (Diazepam) 10 Mg Tablet 10 Mg PO BID PRN Humalog Kwikpen (Insulin Lispro) 200 Unit/1 Ml Insuln.pen 24 Unit SQ TIDWMEALS LAST DOSE GIVEN: DATE: TIME: NEXT DOSE DUE: DATE: TIME: Activity: as tolerated Diet: Consistent Carbohydrate Follow-up Plan PCP in 1-2 weeks TAVO SUAREZ MD Jul 21, 2017 13:58
[2017-07-21 15:12] VITALS: BP 127/72
[2017-07-21] MEDS: FUROSEMIDE 20 MG TABLET PO SCH (17:03)
[2017-07-21] MEDS: AZITHROMYCIN 250 MG TABLET. PO SCH (17:03)
[2017-07-21 19:52] VITALS: BP 136/72
[2017-07-21] MEDS: oxyCODONE IR 5 MG TABLET PO PRN (20:22)
[2017-07-22] MEDS ORDERED: SODIUM CHLORIDE 3% NEB SCH (08:00)
== END 2017-07-21 20:55 | disposition home health service (06) | DRG 189 ==
LOC: ER 17:27 → ICU 21:00 → 1 SOUTH 07-19 06:29
PROVIDERS: ADMIT Internal Medicine; ATTEND Internal Medicine
DX: J96.20 Acute and chronic respiratory failure, unspecified whether with hypoxia or hypercapnia (principal); I11.0 Hypertensive heart disease with heart failure; I50.9 Heart failure, unspecified; E11.65 Type 2 diabetes mellitus with hyperglycemia; Z99.81 Dependence on supplemental oxygen; J44.0 Chronic obstructive pulmonary disease with (acute) lower respiratory infection; J44.1 Chronic obstructive pulmonary disease with (acute) exacerbation; Z68.44 Body mass index [BMI] 60.0-69.9, adult; K70.30 Alcoholic cirrhosis of liver without ascites; J20.9 Acute bronchitis, unspecified; F41.9 Anxiety disorder, unspecified; M19.90 Unspecified osteoarthritis, unspecified site; E03.9 Hypothyroidism, unspecified; B19.20 Unspecified viral hepatitis C without hepatic coma; E66.01 Morbid (severe) obesity due to excess calories; L40.9 Psoriasis, unspecified; E87.5 Hyperkalemia; F10.20 Alcohol dependence, uncomplicated; G47.33 Obstructive sleep apnea (adult) (pediatric); Z79.4 Long term (current) use of insulin; Z80.3 Family history of malignant neoplasm of breast; Z79.899 Other long term (current) drug therapy; Z80.0 Family history of malignant neoplasm of digestive organs; Z82.1 Family history of blindness and visual loss; Z87.891 Personal history of nicotine dependence; Z90.710 Acquired absence of both cervix and uterus; Z98.41 Cataract extraction status, right eye; Z98.42 Cataract extraction status, left eye; Z91.040 Latex allergy status; Z81.8 Family history of other mental and behavioral disorders
CPT/HCPCS: 36415; 71046; 80048; 80053; 82140; 82947; 83036; 83735; 84484; 85007; 85025; 85027; 85610; 87641; 87804; 93005; 94640; 96374; J0456; J0696; J1650; J1815; J2270; J2920; J2930; J7620; 99285-25

== ENCOUNTER → 2017-10-28 | Outpatient (CLI) | payer MEDICARE, OTHER ==
[~2017-10-28] MED LIST changes: +ALBU8.5H8 INH; +AZIT250T6 PO; +BENZ100C PO; +CALC60CR TP; +CALC60CR2 TP; +CARV12.52 PO; +CLOB15OI TP; +DICL100G18 TP; +FURO-68 PO; +FURO-69 PO; +GABA600T2 PO; +GUAI600T47 PO; +HYDR453.3 TP; +INSU100I13 SQ; +LIRA0.6P2 SQ; +LISI10TA2 PO; +MELO15TA23 PO; +METH-38 PO; +METR70GE2 TP; +MODA200T2 PO; +MUPI22OI2 TP; +MUPI30OI TP; +NYST15CR TP; +OMEP20TA8 PO; +OXYC30TA PO; +OXYC60TA7 PO; +POTA20TA4 PO; +SPIR25TA5 PO; +TIOT18CA IH; +TIZA4TAB PO; +ZINC56CR2 TP; +ZOLP10TA PO
--- NOTE | 2017-10-28 16:04 | RAD ---
Right Lower Extremity Venous Doppler Ultrasound Indication: Right lower extremity pain and swelling. Comparison: None. Procedure: Color Doppler, spectral Doppler, and grayscale images with and without compression are obtained in the area of the common femoral vein, superficial femoral vein - femoral vein junction, main femoral vein (superficial femoral vein) and popliteal vein. Veins of the proximal calf are also imaged. Findings: Examination is technically difficult secondary to patient body habitus. There is normal duplex flow, color flow and compressibility of all visualized vein segments. There is no evidence of deep venous thrombosis. Impression: No evidence of right lower extremity deep venous thrombosis. Electronically signed by: Buddy Cage MD (10/28/2017 4:01 PM) [id number]
== END | disposition home or self-care (01) ==
LOC: US 13:52
PROVIDERS: ATTEND Physician Assistant
DX: M79.89 Other specified soft tissue disorders (principal); M79.604 Pain in right leg; I11.0 Hypertensive heart disease with heart failure; I50.9 Heart failure, unspecified; E11.9 Type 2 diabetes mellitus without complications; J44.9 Chronic obstructive pulmonary disease, unspecified
CPT/HCPCS: 93971

== ENCOUNTER 2018-11-07 14:17 | Emergency (ER) | payer MEDICARE, OTHER ==
[~2018-11-07] VITALS: Ht 167.6 cm; Wt 174.6 kg
[~2018-11-07 14:17] MED LIST changes: +ALBU2.5V8 INH; -ALBU8.5H8 INH; -CARV12.52 PO; +CARV12.547 PO; -GABA600T2 PO; +GABA600T7 PO
[2018-11-07 14:32] VITALS: BP 150/82
--- NOTE | 2018-11-07 14:42 | PHYS DOC ---
Past History Past Medical History: Anxiety, Asthma, CHF, Constipation, COPD, Diabetes, Heart Disease, Hypothyroid, Sciatica Past Surgical History: Appendectomy, Cholecystectomy, Hysterectomy, Other Alcohol Use: None Drug Use: None Adult General Chief Complaint Chief Complaint: SHORTNESS OF BREATH HPI HPI Patient is a 58-year-old female presents complaining of shortness of breath for the past week or so. It is been getting worse over time. Worse with laying down, low bit better with sitting up. Worse with exertion. She notes her legs have been swollen more than usual. She notes she's had a productive cough of greenish and yellowish sputum. She notes 2 days ago she had a fever of 102. She denies any recent travel. No recent surgeries. No chest pain or palpitations. Symptoms are moderate to severe. Patient does have a history of being on diuretics, Lasix 20 mg twice a day. She is also on an albuterol breathing treatment twice a day. These medicines do help transiently with the shortness of breath.[] Review of Systems Review of Systems Constitutional: Denies fever or chills [] Eyes: Denies change in visual acuity, redness, or eye pain [] HENT: Denies nasal congestion or sore throat [] Respiratory: See history of present illness[] Cardiovascular: No chest pain or palpitations[] GI: Denies abdominal pain, nausea, vomiting, bloody stools or diarrhea [] : Denies dysuria or hematuria [] Musculoskeletal: Denies back pain or joint pain [] Integument: Denies rash or skin lesions [] Neurologic: Denies headache, focal weakness or sensory changes [] Endocrine: Denies polyuria or polydipsia [] All other systems were reviewed and found to be within normal limits, except as documented in this note. Current Medications Current Medications Current Medications Medications (Trade) Dose Ordered Sig/Julia Start Time Stop Time Status Last Admin Dose Admin Albuterol/ Ipratropium (Duoneb) 3 ml 1X ONCE 11/07/18 14:45 11/07/18 14:46 Furosemide (Lasix) 40 mg 1X ONCE 11/07/18 14:45 11/07/18 14:46 UNV Allergies Allergies Allergies Coded Allergies Type Severity Reaction Last Updated Verified Latex, Natural Rubber Allergy Intermediate 07/17/17 Yes I S O L A T I O N *CONTACT* Allergy Unknown 07/17/17 Yes Physical Exam Physical Exam Constitutional: Well developed, well nourished, no acute distress, non-toxic appearance. [] HENT: Normocephalic, atraumatic, bilateral external ears normal, oropharynx moist, no oral exudates, nose normal. [] Eyes: PERRLA, EOMI, conjunctiva normal, no discharge. [] Neck: Normal range of motion, no tenderness, supple, no stridor. [] Cardiovascular:Heart rate regular rhythm, no murmur [] Lungs & Thorax: Bilateral breath sounds with crackles and wheezes diffusely[] Abdomen: Bowel sounds normal, soft, no tenderness, no masses, no pulsatile masses. [] Skin: Warm, dry, no erythema, no rash. [] Back: No tenderness, no CVA tenderness. [] Extremities: No tenderness, no cyanosis, no clubbing, ROM intact, 1-2+ pretibial edema bilaterally symmetric. Negative Homans sign. [] Neurologic: Alert and oriented X 3, normal motor function, normal sensory function, no focal deficits noted. [] Psychologic: Affect normal, judgement normal, mood normal. [] Current Patient Data Vital Signs Vital Signs Date Time Temp Pulse Resp B/P (MAP) Pulse Ox O2 Delivery O2 Flow Rate FiO2 11/07/18 14:32 98.2 84 20 98 Nasal Cannula 2.0 EKG EKG EKG shows a sinus rhythm at 82 bpm, normal axis, QTC of 501 ms, no ST elevation. A nonspecific intraventricular block is present. There are no acute changes when compared with EKG of 07/15/2017. Interpreted by me at 1448[] Radiology/Procedures Radiology/Procedures PROCEDURE: CHEST PA & LATERAL Exam performed: 2 views of the chest. Indication: Shortness of breath Date of Service: 11/07/2018 2:34 PM . Comparison : 2 views chest from 07/15/2017. Findings: PA and lateral radiographs of the chest reveal a normal cardiomediastinal contour. The lungs are clear. No pleural fluid is seen. The visualized osseous structures are unremarkable. Impression: No acute cardiopulmonary process seen.[] Course & Med Decision Making Course & Med Decision Making Pertinent Labs and Imaging studies reviewed. (See chart for details) ED course: Patient arrived, was placed in bed, and tolerated exam well. She was given breathing treatment as well as diuretics which improved her breath sounds, as well as improved her symptoms. She reported feeling much better. She was transported to and from radiology with any complications. After the return of laboratory and imaging studies, these were discussed with the patient voiced und erstanding. All questions were answered. She was discharged in improved condition. Medical decision making: There is no evidence of this being an acute coronary syndrome, congestive heart failure, new hypoxia given that her oxygen saturation was under percent on her usual 2 L nasal cannula oxygen. No evidence of significant electrolyte abnormality. Believe this to be more of a COPD exacerbation. Starting steroids and increasing her usual albuterol dosage frequency as well as adding ipratropium. Do not believe this to be a pulmonary embolism given that there is no respirophasic chest discomfort.[] Dragon Disclaimer Dragon Disclaimer This electronic medical record was generated, in whole or in part, using a voice recognition dictation system. Departure Departure: Impression: Primary Impression: Acute exacerbation of chronic obstructive pulmonary disease (COPD) Disposition: HOME, SELF-CARE Condition: IMPROVED Referrals: ESSENCE RILEY (PCP) Follow-up in 2 days Patient Instructions: Chronic Obstructive Pulmonary Disease Exacerbation Additional Instructions: Follow-up with your regular doctor in 2 days. Take medication as prescribed. Return to the ER if worsening difficulty breathing or any other concerns. Scripts Prednisone (PREDNISONE) 50 Mg Tablet 1 TAB PO DAILY for INFLAMMATION, #5 TAB Prov: TANISHA HUSAIN DO 11/07/18 Ipratropium [place] (IPRATROPIUM BROMIDE) 0.2 Mg/1 Ml Solution 1 VIAL NEB Q6HRS for difficulty breathing, #1 B 0 Refills Prov: TANISHA HUSAIN DO 11/07/18 Albuterol Sulfate (ALBUTEROL SULFATE CONC NEB SOLN) 2.5 Mg/0.5 Ml Vial.neb 1 VIAL NEB Q4HRS for shortness of breath, #60 VIAL 0 Refills Prov: TANISHA HUSAIN DO 11/07/18 TANISHA HUSAIN DO Nov 07, 2018 14:42
[2018-11-07] MEDS ORDERED: IPRATRPIUM/ALBUTEROL 0.5/2.5MG 3 ML NEBU. NEB ONE (14:45)
--- NOTE | 2018-11-07 15:13 | RAD ---
Exam performed: 2 views of the chest. Indication: Shortness of breath Date of Service: 11/07/2018 2:34 PM . Comparison : 2 views chest from 07/15/2017. Findings: PA and lateral radiographs of the chest reveal a normal cardiomediastinal contour. The lungs are clear. No pleural fluid is seen. The visualized osseous structures are unremarkable. Impression: No acute cardiopulmonary process seen. Electronically signed by: Mildred Freed MD (11/07/2018 3:09 PM) [facility]
[2018-11-07] MEDS ORDERED: FUROSEMIDE 40 MG/4 ML VIAL IVP ONE (15:15)
[2018-11-07 15:29] LABS: BASO % 0 % (0-3); EOS # 0.1 x10^3/uL (0.0-0.7); EOS % 3 % (0-3); HEMOGLOBIN 11.7 g/dL (12.0-15.5); LYMPH # 1.2 x10^3/uL (1.0-4.8); LYMPH % 23 % (24-48); MEAN CORPUSCULAR HEMOGLOBIN 30 pg (25-35); MEAN CORPUSCULAR HGB CONC 33 g/dL (31-37); MEAN CORPUSCULAR VOLUME 94 fL (79-100); MONO # 0.6 x10^3/uL (0.0-1.1); MONO % 12 % (0-9); NEUT # 3.2 x10^3uL (1.8-7.7); NEUT % 62 % (31-73); PLATELET COUNT 130 x10^3/uL (140-400); RED BLOOD COUNT 3.84 x10^6/uL (3.50-5.40); WHITE BLOOD COUNT 5.2 x10^3/uL (4.0-11.0)
[2018-11-07 15:47] LABS: ALBUMIN 2.9 g/dL (3.4-5.0); ALBUMIN/GLOBULIN RATIO 0.6 (1.0-1.7); CALCIUM 9.4 mg/dL (8.5-10.1); CREATININE 1.2 mg/dL (0.6-1.0); GFR 55.8; POTASSIUM 4.2 mmol/L (3.5-5.1); TOTAL BILIRUBIN 0.5 mg/dL (0.2-1.0)
[2018-11-07] MEDS ORDERED: IPRA0.2S5 NEB (16:13)
[2018-11-07] MEDS ORDERED: ALBU2.5V14 NEB (16:13)
[2018-11-07] MEDS ORDERED: PRED50TA PO (16:14)
[2018-11-07] MEDS ORDERED: predniSONE 10 MG TABLET PO ONE (16:15)
[2018-11-07 16:28] LABS: BILIRUBIN,URINE NEG (NEG); CLARITY,URINE HAZY; COLOR,URINE YELLOW; GLUCOSE,URINE NEG (NEG); UROBILINOGEN,URINE 2 mg/dL (0.2 mg/dL)
[2018-11-07 16:29] LABS: BACTERIA,URINE 0 /HPF (0-FEW); NITRITE,URINE NEG (NEG); RBC,URINE 0 /HPF (0-2); SQUAMOUS EPITHELIAL CELL,UR OCC /LPF
== END 2018-11-07 16:20 | disposition home or self-care (01) ==
LOC: ER 14:17
DX: J44.1 Chronic obstructive pulmonary disease with (acute) exacerbation (principal); J45.909 Unspecified asthma, uncomplicated; E11.9 Type 2 diabetes mellitus without complications; E03.9 Hypothyroidism, unspecified; Z91.040 Latex allergy status; Z91.041 Radiographic dye allergy status
CPT/HCPCS: 36415; 71046; 80053; 81001; 83880; 84484; 85025; 87040; 93005; 94640; 96374; 99285; J1940; J7512; J7620